=== PATIENT | male | born 1965 | race Caucasian/White ===

== ENCOUNTER 2018-06-29 08:19 | Emergency (ER) | payer MEDICARE ==
[2018-06-29 08:25] VITALS: BP 173/110; PULSE 104; RESP 18; TEMP 98.5
--- NOTE | 2018-06-29 08:37 | ED ---
URI HPI - General Chief Complaint: Upper Respiratory Infection Stated Complaint: sore throat Time Seen by Provider: 06/29/18 08:27 Source: patient, RN notes reviewed Mode of arrival: ambulatory Limitations: no limitations - History of Present Illness Initial Comments: 53-year-old male presents emergency Department chief complaint sore throat, hoarse voice for 1 week. Patient states that his been using cough drops with no relief. Patient denies any known fever or chills. Denies any chest pain or shortness breath. He does have underlying COPD. Patient denies any nausea vomiting diarrhea constipation. He states he has mild nasal congestion but primarily swelling of his uvula. Patient denies any known drug ALLERGIES or food ALLERGIES. - Related Data Previous Rx's Medication Instructions Recorded Amoxicillin/Potassium Clav 1 tab PO Q12HR #20 tab 06/29/18 [Augmentin 875-125 Tablet] predniSONE 50 mg PO DAILY #5 tab 06/29/18 Allergies Allergy/AdvReac Type Severity Reaction Status Date / Time No Known Allergies Allergy Verified 06/29/18 08:25 Review of Systems ROS Statement: Those systems with pertinent positive or pertinent negative responses have been documented in the HPI. ROS Other: All systems not noted in ROS Statement are negative. Past Medical History Past Medical History: COPD, Hypertension History of Any Multi-Drug Resistant Organisms: None Reported Past Psychological History: Bipolar, Schizoaffective Disorder, Schizophrenia Smoking Status: Current every day smoker Past Alcohol Use History: None Reported Past Drug Use History: None Reported General Exam Limitations: no limitations General appearance: alert, in no apparent distress Head exam: Present: atraumatic, normocephalic, normal inspection Eye exam: Present: normal appearance, PERRL, EOMI. Absent: scleral icterus, conjunctival injection, periorbital swelling ENT exam: Present: mucous membranes moist, TM's normal bilaterally, normal external ear exam. Absent: normal exam, normal oropharynx (Erythematous posterior pharynx, erythema and swelling of the uvula noted swallowing secretions well) Neck exam: Present: normal inspection, full ROM. Absent: tenderness, meningismus, lymphadenopathy Respiratory exam: Present: wheezes (Very minimal). Absent: normal lung sounds bilaterally, respiratory distress, rales, rhonchi, stridor Cardiovascular Exam: Present: regular rate, normal rhythm, normal heart sounds. Absent: systolic murmur, diastolic murmur, rubs, gallop, clicks Course Vital Signs 06/29/18 08:22 Temperature 98.5 F Pulse Rate 104 H Respiratory 18 Rate Blood Pressure 173/110 O2 Sat by Pulse 99 Oximetry Medical Decision Making - Medical Decision Making 53-year-old male presented for sore throat. Patient started to have uvulitis. Patient's symptoms have been present for 1 week. Patient we treated for bacterial infection with Augmentin, prednisone for the swelling. I did discuss because of the smoking and hoarse voice that he does not have any improvement after treatment that he needs to follow up with ENT for further evaluation concerning for cancer. Patient does understand and will follow-up. Return parameters were discussed. Disposition Clinical Impression: Uvulitis, Acute pharyngitis, Laryngitis Disposition: HOME SELF-CARE Condition: Stable Instructions (If sedation given, give patient instructions): Uvulitis (ED) Additional Instructions: Please return to the Emergency Department if symptoms worsen or any other concerns. Prescriptions: Amoxicillin/Potassium Clav [Augmentin 875-125 Tablet] 1 tab PO Q12HR #20 tab predniSONE 50 mg PO DAILY #5 tab Is patient prescribed a controlled substance at d/c from ED?: No Referrals: Odilon Acosta DO [Primary Care Provider] - 1-2 days Time of Disposition: 08:36
== END 2018-06-29 08:49 | disposition home or self-care (01) ==
LOC: EC 08:19
DX: K12.2 Cellulitis and abscess of mouth (principal); J04.0 Acute laryngitis; J02.9 Acute pharyngitis, unspecified; J44.9 Chronic obstructive pulmonary disease, unspecified; F17.200 Nicotine dependence, unspecified, uncomplicated
CPT/HCPCS: 99283

== ENCOUNTER 2018-07-13 07:40 | Emergency (ER) | payer MEDICARE ==
--- NOTE | 2018-07-13 08:26 | ED ---
General Adult HPI - General Chief complaint: ENT Stated complaint: SORETHROAT, COUGH, VOICE HORSENESS Time Seen by Provider: 07/13/18 08:07 Source: patient, RN notes reviewed Mode of arrival: ambulatory Limitations: no limitations - History of Present Illness Initial comments: 53-year-old male presents to the emergency department for a chief complaint of voice hoarseness 3 weeks. Patient states this started as a sore throat 3 weeks ago with hoarseness of voice. Patient states he also had a mild cough that seems to be improving. He states his cough is only in the morning now lasting for about 2 hours. Patient states he is generally feeling better although the hoarseness in his voice is continuing to worsen. Patient states he was seen here in the emergency department 12 days ago and treated with steroids and antibiotics. Patient could not take his steroids due to pruritus. However, as patient has an extensive smoking history there was concern for possible mass if symptoms did not resolve so patient presented to the emergency department. Patient did not follow-up with ENT. Patient has no other complaints at this time including shortness of breath, chest pain, abdominal pain, nausea or vomiting, headache, or visual changes. - Related Data Home Medications Medication Instructions Recorded Confirmed Ascorbic Acid [Vitamin C] 500 mg PO DAILY 06/29/18 07/13/18 Lisinopril 20 mg PO DAILY 06/29/18 07/13/18 Multivit-Min/FA/Lycopen/Lutein 1 tab PO DAILY 06/29/18 07/13/18 [Centrum Silver Men Tablet] PARoxetine [Paxil] 10 mg PO DAILY 06/29/18 07/13/18 Vitamin B Complex 1 cap PO DAILY 06/29/18 07/13/18 amLODIPine [Norvasc] 5 mg PO DAILY 06/29/18 07/13/18 fluPHENAZine [Prolixin 5MG] 5 mg PO DAILY 06/29/18 07/13/18 Allergies Allergy/AdvReac Type Severity Reaction Status Date / Time No Known Allergies Allergy Verified 07/13/18 08:30 Review of Systems ROS Statement: Those systems with pertinent positive or pertinent negative responses have been documented in the HPI. ROS Other: All systems not noted in ROS Statement are negative. Past Medical History Past Medical History: COPD, Hypertension History of Any Multi-Drug Resistant Organisms: None Reported Past Surgical History: No Surgical Hx Reported Past Psychological History: Bipolar, Schizoaffective Disorder, Schizophrenia Smoking Status: Current every day smoker Past Alcohol Use History: None Reported Past Drug Use History: None Reported General Exam Limitations: no limitations General appearance: alert, in no apparent distress Head exam: Present: atraumatic, normocephalic, normal inspection Eye exam: Present: normal appearance, PERRL, EOMI. Absent: scleral icterus, conjunctival injection, periorbital swelling ENT exam: Present: normal exam, mucous membranes moist, TM's normal bilaterally , normal external ear exam. Absent: normal oropharynx (uvula mildly enlarged, but down midline) Neck exam: Present: normal inspection, full ROM. Absent: tenderness, meningismus, lymphadenopathy, other (no masses noted) Respiratory exam: Present: normal lung sounds bilaterally. Absent: respiratory distress, wheezes, rales, rhonchi, stridor Cardiovascular Exam: Present: regular rate, normal rhythm, normal heart sounds. Absent: systolic murmur, diastolic murmur, rubs, gallop, clicks Neurological exam: Present: alert, oriented X3, CN II-XII intact Psychiatric exam: Present: normal affect, normal mood Course Vital Signs 07/13/18 07:46 Temperature 98.6 F Pulse Rate 89 Respiratory 18 Rate Blood Pressure 163/107 O2 Sat by Pulse 98 Oximetry Medical Decision Making - Medical Decision Making 53-year-old male presents to the emergency department for a chief complaint of voice hoarseness 3 weeks patient also has a mild sore throat with mild cough. History of COPD. Patient states cough is consistent with baseline. No fevers or chills at home. Patient does have a smoking history. Patient was treated with Augmentin and steroids but was unable to take the steroids. As the symptoms have been going on for 3 weeks and patient did not have relief from treatment patient will be scanned due to history of extensive smoking. CT of the neck with contrast shows no obvious mass or adenopathy. Chest x-ray shows no acute cardiopulmonary process. Group A strep is negative. At this time patient likely has a viral infection. However I did discuss following up with ENT in the next 1-2 days for possible additional testing. Patient will return here if he has any worsening symptoms. He agrees with this. - Lab Data Lab Results 07/13/18 Range/Units 08:32 Group A Strep Rapid Negative (Negative) Disposition Clinical Impression: Sore throat, Hoarseness of voice Disposition: HOME SELF-CARE Condition: Good Instructions (If sedation given, give patient instructions): Pharyngitis (ED) Additional Instructions: Please follow up with ENT in 1-2 days. Please return to the Emergency Department if you have any worsening symptoms Is patient prescribed a controlled substance at d/c from ED?: No Referrals: Odilon Acosta DO [Primary Care Provider] - 1-2 days Edy Cole MD [STAFF PHYSICIAN] - 1-2 days Time of Disposition: 10:03
--- NOTE | 2018-07-13 08:51 | XR ---
EXAMINATION TYPE: XR chest 2V DATE OF EXAM: 07/13/2018 COMPARISON: NONE HISTORY: Cough and congestion. History of COPD. TECHNIQUE: Frontal and lateral views of the chest are obtained. FINDINGS: There is no focal air space opacity, pleural effusion, or pneumothorax seen. The cardiac silhouette size is within normal limits. The osseous structures are intact. Minimal degenerative ch anges of the thoracic spine are noted. IMPRESSION: No acute cardiopulmonary process.
--- NOTE | 2018-07-13 09:30 | CT ---
EXAMINATION TYPE: CT soft tissue neck w con DATE OF EXAM: 07/13/2018 HISTORY: Sore throat, hoarseness, and cough for over one month COMPARISON: NONE CT DLP: 230.6 mGycm. Automated Exposure Control for Dose Reduction was Utilized. TECHNIQUE: CT scan of the neck is performed with IV Contrast, patient injected with 100 mL of Isovue 300, axial images are obtained, coronal and sagittal reformatted images are reviewed. FINDINGS: Airway: Nasopharyngeal airway is patent into hypopharyngeal airway. Region of epiglottis and vallecul a appears within normal limits. Thyroid gland is normal in size. Mild emphysematous change lung apice s is present. Parotid/submandibular glands: No gross abnormality seen. Carotid/Vascular Structures: No significant significant plaque or stenosis or carotid bulb level. The re is dominant left vertebral artery with suspected hypoplastic distal right vertebral artery. Osseous Structures: There is mild multilevel disc space narrowing with mild to moderate multilevel an terior spurring. Posterior spur disc complexes effacing anterior thecal sac at C3-C4, C4-C5, and C6-C 7 levels. Other: Nasal septum is slightly deviated to left of midline. Parapharyngeal fat spaces are maintained bilaterally. There are scattered subcentimeter lymph nodes throughout the neck bilaterally. There is no definitive greater than 1 cm neck adenopathy. IMPRESSION: No obvious mass or adenopathy.
[2018-07-13 10:25] VITALS: BP 134/86; PULSE 73; RESP 16; TEMP 97.6
== END 2018-07-13 10:17 | disposition home or self-care (01) ==
LOC: EC 07:40
DX: J02.9 Acute pharyngitis, unspecified (principal); I10 Essential (primary) hypertension; F17.200 Nicotine dependence, unspecified, uncomplicated; Z79.899 Other long term (current) drug therapy
CPT/HCPCS: 87081; 87430; 71046; 70491; 99284; Q9967

== ENCOUNTER 2018-09-13 10:41 | Day surgery (SDC) | payer MEDICARE ==
[2018-09-11 11:24] VITALS: BMI 23.5
[~2018-09-13 10:41] MED LIST: LACTATED RINGERS 1,000 ML IV SCH; LIDOCAINE 1% 20 ML VIAL (10MG/ML) FOR IV START INTRADERMA PRN; MIDAZOLAM (PF) 2 MG/2 ML VIAL IV PRN
[2018-09-13 11:14] VITALS: TEMP 97.8
[2018-09-13] MEDS ORDERED: PROPOFOL 10 MG/ML 20 ML VIAL IV ONE (12:21)
[2018-09-13] MEDS ORDERED: LIDOCAINE 1% INJ 10MG/ML (20 ML MDV) ONE (12:21)
[2018-09-13 13:00] VITALS: PULSE 78; RESP 16
--- NOTE | 2018-09-13 13:01 | P.PCN ---
Date of Procedure: 09/13/18 Procedure(s) Performed: Procedure: Colonoscopy and biopsy. Preoperative diagnosis: Diarrhea. Postoperative diagnosis: 1. Nonspecific sigmoid changes, could represent resolving infectious or self-limited colitis. 2. Diminutive rectal polyp, probably representing hyperplastic polyp, biopsied. 3. Otherwise, exam of the colon within normal limits. 4. A blind biopsy was obtained from the terminal ileum and biopsies were obtained from the right colon as well. Preparation: HalfLytely prep. Sedation: Was provided by anesthesia. Brief clinical history: The patient is a 53-year-old male who is scheduled for this evaluation because of diarrhea of 2 months duration. The patient indicated that normally he has multiple loose and diarrheic bowel movements every morning, then he would be good for the rest of the day, however, for the last 2 months, he continues to have bowel movements all day long. No bleeding or other alarm symptoms. No prior colonoscopy. There is family history of colon cancer in his paternal uncle. Procedure: With the patient on his left lateral decubitus position and after informed consent and adequate sedation, the perianal area was inspected and it did not show any fissures or fistulas. There were no masses felt on digital rectal examination. The Olympus CFH 190L video colonoscope was then inserted in the rectum in the usual fashion and advanced to the cecum. I was not able to advance the endoscope through the ileocecal valve into the terminal ileum, so I obtained a blind biopsy from the terminal ileum. There was some nonspecific mucosal changes in the sigmoid probably representing resolving self-limited or infectious colitis, otherwise, exam to the cecum showed healthy mucosa. There was a diminutive polyp in the rectum which I biopsied. I also obtained biopsies from the right colon to rule out microscopic colitis. The patient tolerated the procedure well. Plan: The patient was reassured. Will await biopsy results. He will follow up with you as planned and I will be happy to see in the office if his symptoms persist. I would consider repeat colonoscopy in around 5 years for screening for colon cancer.
[2018-09-13 13:11] VITALS: BP 147/93
== END 2018-09-13 13:28 | disposition home or self-care (01) ==
LOC: ORWHC2ENDO 10:41
DX: K50.10 Crohn's disease of large intestine without complications (principal); K62.1 Rectal polyp; Z80.0 Family history of malignant neoplasm of digestive organs; J44.9 Chronic obstructive pulmonary disease, unspecified; F31.9 Bipolar disorder, unspecified; I10 Essential (primary) hypertension; F17.210 Nicotine dependence, cigarettes, uncomplicated; Z79.899 Other long term (current) drug therapy
CPT/HCPCS: 88305; 45380; J2001; J2704

== ENCOUNTER 2019-12-21 03:25 | Inpatient (IN) | payer MEDICARE ==
[2019-12-21] MEDS ORDERED: lisinopriL 20 MG TAB PO STA (04:02)
[2019-12-21] MEDS ORDERED: amLODIPine 5 MG TAB PO STA (04:03)
[2019-12-21] MEDS ORDERED: PARoxetine 10 MG TAB PO STA (04:03)
[2019-12-21 05:27] LABS: Amphetamine Screen,Urine Not Detected (NotDetected); Barbiturate Screen,Urine Not Detected (NotDetected); Benzodiazepines Screen,Urine Not Detected (NotDetected); Cocaine Screen,Urine Not Detected (NotDetected); Methadone Screen, Urine Not Detected (NotDetected); Opiate Screen,Urine Not Detected (NotDetected); Oxycodone Screen, Urine Not Detected (NotDetected); Phencyclidine Screen,Urine Not Detected (NotDetected); Tricyclic Antidepressant,Urine Not Detected (NotDetected); Urn Cannabinoid Scrn Not Detected (NotDetected)
[2019-12-21] MEDS ORDERED: ZIPRASIDONE 20 MG VIAL IM PRN (06:56)
[2019-12-21] MEDS ORDERED: MAGNESIUM HYDROXIDE 2,400 MG/10 ML CUP PO PRN (06:56)
[2019-12-21] MEDS ORDERED: ACETAMINOPHEN TAB 325 MG TAB PO PRN (06:56)
[2019-12-21] MEDS ORDERED: LORazepam 2 MG/ML INJ IM PRN (06:56)
--- NOTE | 2019-12-21 07:28 | ED ---
General Adult HPI - General Chief complaint: Recheck/Abnormal Lab/Rx Stated complaint: psych eval Time Seen by Provider: 12/21/19 03:34 Source: patient, EMS Mode of arrival: EMS Limitations: no limitations - History of Present Illness Initial comments: This patient is a 54-year-old man who presents to be evaluated for constellation of symptoms that have started since he ran out of his Prolixin. Patient states that he has been having some racing thoughts. He is concerned that there are people who are conspiring against him. He states he also went and drank a considerable amount of alcohol in the past 2 days which is something he does not do if he is taking his medication. Patient also has been driving dangerously. He states that he had change in his insurance and has not been able to afford any of his medications for between a week and 2 weeks now. -: days(s) Severity scale (1-10): 0 Improves with: none Worsens with: none Associated Symptoms: denies other symptoms - Related Data Home Medications Medication Instructions Recorded Confirmed Ascorbic Acid [Vitamin C] 500 mg PO 06/29/18 09/11/18 Lisinopril 20 mg PO 06/29/18 09/11/18 Multivit-Min/FA/Lycopen/Lutein 1 tab PO 06/29/18 09/11/18 [Centrum Silver Men Tablet] PARoxetine [Paxil] 10 mg PO HS 06/29/18 09/11/18 Vitamin B Complex 1 cap PO 06/29/18 09/11/18 amLODIPine [Norvasc] 5 mg PO 06/29/18 09/11/18 fluPHENAZine [Prolixin 5MG] 5 mg PO 06/29/18 09/11/18 Allergies Allergy/AdvReac Type Severity Reaction Status Date / Time No Known Allergies Allergy Verified 12/21/19 03:33 Review of Systems ROS Statement: Those systems with pertinent positive or pertinent negative responses have been documented in the HPI. ROS Other: All systems not noted in ROS Statement are negative. Constitutional: Denies: fever, chills, weakness Eyes: Denies: vision change Respiratory: Denies: cough, dyspnea Cardiovascular: Denies: chest pain, palpitations Gastrointestinal: Denies: abdominal pain, vomiting, diarrhea Genitourinary: Denies: dysuria Skin: Denies: rash Neurological: Denies: headache, weakness, numbness Psychiatric: Reports: as per HPI, anxiety, other (Racing thoughts and delusional thought content.). Denies: auditory hallucinations, visual hallucinations, homicidal thoughts, suicidal thoughts Past Medical History Past Medical History: COPD, Hypertension History of Any Multi-Drug Resistant Organisms: None Reported Past Surgical History: No Surgical Hx Reported Additional Past Surgical History / Comment(s): ORAL SX Past Anesthesia/Blood Transfusion Reactions: No Reported Reaction Past Psychological History: Bipolar, Schizoaffective Disorder, Schizophrenia Past Alcohol Use History: None Reported Past Drug Use History: None Reported - Past Family History Mother Family Medical History: No Reported History General Exam Limitations: no limitations General appearance: alert, in no apparent distress, anxious Head exam: Present: atraumatic, normocephalic Eye exam: Present: normal appearance. Absent: scleral icterus, conjunctival injection ENT exam: Present: normal oropharynx Neck exam: Present: normal inspection, full ROM Respiratory exam: Present: normal lung sounds bilaterally. Absent: respiratory distress, wheezes, rales, rhonchi, stridor Cardiovascular Exam: Present: regular rate, normal rhythm, normal heart sounds. Absent: systolic murmur, diastolic murmur, rubs, gallop GI/Abdominal exam: Present: soft. Absent: distended, tenderness, guarding, rebound, rigid, mass Extremities exam: Present: normal inspection, normal capillary refill. Absent: pedal edema, calf tenderness Back exam: Present: normal inspection. Absent: CVA tenderness (R), CVA tenderness (L) Neurological exam: Present: alert Psychiatric exam: Present: anxious, manic. Absent: normal affect, normal mood, depressed, agitated, flat affect, homicidal ideation, suicidal ideation Skin exam: Present: warm, dry, intact, normal color. Absent: rash Course Vital Signs 12/21/19 12/21/19 12/21/19 03:27 05:35 06:39 Temperature 98.7 F 97.5 F L 98.8 F Pulse Rate 90 88 98 Pulse Rate [ Right] Respiratory 16 18 18 Rate Blood Pressure 145/100 139/80 135/87 Blood Pressure [Right Arm] O2 Sat by Pulse 100 99 100 Oximetry 12/21/19 07:16 Temperature 98.4 F Pulse Rate Pulse Rate [ 98 Right] Respiratory 18 Rate Blood Pressure Blood Pressure 153/94 [Right Arm] O2 Sat by Pulse 95 Oximetry Medical Decision Making - Lab Data Lab Results 12/21/19 Range/Units 05:03 Urine Opiates Screen Not Detected (NotDetected) Ur Oxycodone Screen Not Detected (NotDetected) Urine Methadone Screen Not Detected (NotDetected) Ur Propoxyphene Screen Not Detected (NotDetected) Ur Barbiturates Screen Not Detected (NotDetected) U Tricyclic Antidepress Not Detected (NotDetected) Ur Phencyclidine Scrn Not Detected (NotDetected) Ur Amphetamines Screen Not Detected (NotDetected) U Methamphetamines Scrn Not Detected (NotDetected) U Benzodiazepines Scrn Not Detected (NotDetected) Urine Cocaine Screen Not Detected (NotDetected) U Marijuana (THC) Screen Not Detected (NotDetected) Disposition Clinical Impression: Acute psychosis Disposition: ADMITTED IP TO THIS [facility] Condition: Fair Is patient prescribed a controlled substance at d/c from ED?: No Referrals: Odilon Acosta DO [Primary Care Provider] - 1 Week
[2019-12-21] MEDS: NICOTINE 14MG/24HR PATCH TRANSDERM SCH (09:34)
[2019-12-21] MEDS: LORazepam 1 MG TAB PO PRN ×2 (09:36→21:16)
--- NOTE | 2019-12-21 16:18 | P.HP ---
Psychiatric H&P - . H&P Date: 12/21/19 History & Physical: Allergies Allergy/AdvReac Type Severity Reaction Status Date / Time No Known Allergies Allergy Verified 12/21/19 03:33 Vital Signs Temp 98.4 F 12/21/19 07:16 Pulse 98 12/21/19 07:16 Resp 18 12/21/19 07:16 BP 153/94 12/21/19 07:16 Pulse Ox 95 12/21/19 07:16 Intake & Output 12/20/19 12/21/19 12/21/19 18:59 06:59 18:59 Weight 68.039 kg 65.68 kg Laboratory Last Values Urine Opiates Screen Not Detected (NotDetected) 12/21/19 05:03 Ur Oxycodone Screen Not Detected (NotDetected) 12/21/19 05:03 Urine Methadone Screen Not Detected (NotDetected) 12/21/19 05:03 Ur Propoxyphene Screen Not Detected (NotDetected) 12/21/19 05:03 Ur Barbiturates Screen Not Detected (NotDetected) 12/21/19 05:03 U Tricyclic Antidepress Not Detected (NotDetected) 12/21/19 05:03 Ur Phencyclidine Scrn Not Detected (NotDetected) 12/21/19 05:03 Ur Amphetamines Screen Not Detected (NotDetected) 12/21/19 05:03 U Methamphetamines Scrn Not Detected (NotDetected) 12/21/19 05:03 U Benzodiazepines Scrn Not Detected (NotDetected) 12/21/19 05:03 Urine Cocaine Screen Not Detected (NotDetected) 12/21/19 05:03 U Marijuana (THC) Screen Not Detected (NotDetected) 12/21/19 05:03 12/21/19 16:11 Identifying data: 54-year-old male patient HPI:Patient was admitted to the inpatient psychiatric unit on a voluntary basis relays he was off his medications and was feeling paranoid. Patient states he couldn't get his medications and was off of them for a 2 week.. He says he couldn't eat and he was walking the streets and says he was feeling paranoid and delusional. Says he came to the hospital on his own, he was shaking bad. He also states he was not sleeping good. He says when he is on his medications is fine. PAST PSYCHIATRIC HISTORY: Patient relays he has not been seeing a psychiatrist recently. He says his illness has been in remission for 20 years on the medications. He most recently has been on Prolixin 5 more grams at bedtime and Paxil on 10 mg at bedtime. He makes a reference initially that he like to get off Paxil but then he says when he misses that he'll notice that and on it's a good signal that he hasn't taken it sounds. He used to see Dr. Arias in the past. He makes reference to a diagnosis of paranoid schizophrenia. He hasn't heard voices in many years he states. He denies any history of suicide attempts. PMH: Hypertension, COPD ALLERGIES: No known ALLERGIES MEDICATIONS: Tylenol when necessary, Maalox when necessary, Norvasc, Catapres, Zestril, Ativan when necessary, milk of magnesia when necessary, Habitrol patch, Geodon when necessary CHEMICAL DEPENDENCY HISTORY: Patient relays a history of using marijuana, says lately he hasn't been able to afford it. He says he has a marijuana card. He does make a reference to some history of drinking 6-8 beers per day. FAMILY PSYCHIATRIC HISTORY: Not known at this time. FAMILY CHEMICAL DEPENDENCY HISTORY: Not known at this time. SOCIAL HISTORY: Makes reference to a history of disability. He lives on his own apartment. He does talk about his heladio. MENTAL STATUS EXAM: He is alert and cooperative with the interview. His speech is fluent, somewhat rapid and pressured at times. His speech does become louder at times. His mood is described as "back to self." He denies any thoughts of harm to self or others. His thought processes at times show some disorganization. He relates he hasn't heard voices for many years. He does describe recent feelings of paranoid thinking. Cognitively appears very grossly intact. I do not note any significant disorientation or memory disturbance. His insight is adequate, judgment shows evidence of recent impairment. STRENGTHS/WEAKNESSES: Strengthsseeking treatment; weaknessescoping skills INTELLECTUAL FUNCTIONING: Average IMPRESSIONS: Schizophrenia; rule out cannabis and alcohol use disorders PLAN: Patient is admitted to the inpatient psychiatric unit on a voluntary basis. He'll placed on SP 15 minute precautions. He'll participate group and activity therapies. Baseline laboratory workup will be done the patient and medical consultation will be ordered. We'll reinitiate medications that he has done well on which include Paxil 10 mg at bedtime and Prolixin 5 mg at bedtime. Continue to monitor for any mood or psychosis symptoms. We will look into any support systems. Estimated length of stay is 3-5 days. Prognosis is guarded.
--- NOTE | 2019-12-21 18:32 | P.MDCNMH ---
History of Present Illness H&P Date: 12/21/19 Chief Complaint: Medical management 54-year-old male with hypertension, COPD mild to moderate presents to the ED for increasing thoughts after running out of Prolixin. He is admitted to mental health unit for further management and observation. [facility] physicians has been consulted for medical management of this patient. Patient states that he was binge drinking over the past 3 days and he is unable to describe any other events during this time. Patient reports smoking 2-3 packs of cigarettes daily since great 8. Patient reports no history of alcohol abuse, states that he drinks very seldomly and socially. He denies any illicit drug use. Patient denies any headache, lower extremity edema, nausea or vomiting, fever or chills, chest pain, shortness of breath, palpitations, changes in urination or bowel habits. No changes in appetite or weight. He denies any dizziness, numbness/weakness/tingling of the extremities. Review of his vital signs show BP of 153/94. UDS was negative. Review of Systems Pertinent positives and negatives as discussed in HPI, a complete review of systems was performed and all other systems are negative. Past Medical History Past Medical History: COPD, Hypertension History of Any Multi-Drug Resistant Organisms: None Reported Past Surgical History: No Surgical Hx Reported Additional Past Surgical History / Comment(s): ORAL SX Past Anesthesia/Blood Transfusion Reactions: No Reported Reaction Past Psychological History: Bipolar, Schizoaffective Disorder, Schizophrenia Past Alcohol Use History: None Reported Past Drug Use History: None Reported - Past Family History Mother Family Medical History: No Reported History Medications and Allergies Home Medications Medication Instructions Recorded Confirmed Type Ascorbic Acid [Vitamin C] 500 mg PO 06/29/18 12/21/19 History Lisinopril 20 mg PO 06/29/18 12/21/19 History Multivit-Min/FA/Lycopen/Lutein 1 tab PO 06/29/18 12/21/19 History [Centrum Silver Men Tablet] PARoxetine [Paxil] 10 mg PO 06/29/18 12/21/19 History amLODIPine [Norvasc] 5 mg PO HS 06/29/18 12/21/19 History fluPHENAZine [Prolixin 5MG] 5 mg PO HS 06/29/18 12/21/19 History cloNIDine HCL [Catapres] 0.1 mg PO 12/21/19 12/21/19 History Allergies Allergy/AdvReac Type Severity Reaction Status Date / Time No Known Allergies Allergy Verified 12/21/19 03:33 Physical Exam Vitals: Vital Signs Temp Pulse Pulse Resp BP BP Pulse Ox 12/21/19 07:16 98.4 F 98 18 153/94 95 12/21/19 06:39 98.8 F 98 18 135/87 100 12/21/19 05:35 97.5 F L 88 18 139/80 99 12/21/19 03:27 98.7 F 90 16 145/100 100 Intake and Output 12/21/19 12/21/19 12/21/19 06:59 14:59 22:59 Other: Weight 68.039 kg 65.68 kg General: [non toxic], [no distress], [appears at stated age] Derm: [warm], [dry] Head: [atraumatic], [normocephalic], [symmetric] Eyes: [EOMI], [no lid lag], [anicteric sclera] Mouth: [no lip lesion], [mucus membranes moist] Cardiovascular: [S1S2 reg], [tachycardic], [positive DP pulse bilateral], Lungs: [Scattered wheezing bilateral], [no rhonchi, no rales] , [no accessory muscle use] Abdominal: [soft], [ nontender to palpation], [no guarding], [no appreciable organomegaly] Ext: [no gross muscle atrophy], [no edema], [no contractures] Neuro: [ CN II-XI grossly intact], [no focal neuro deficits] Psych: [Alert], [oriented], [appropriate affect] , pressured speech Cranial Nerve Examination - Cranial Nerves Cranial Nerve II- Optic: Intact Cranial Nerve III- Oculomotor: Intact Cranial Nerve IV- Trochlear: Intact Cranial Nerve V- Trigeminal: Intact Cranial Nerve - Abducens: Intact Cranial Nerve VII- Facial: Intact Cranial Nerve VIII- Auditory: Intact Cranial Nerve IX- Glossopharyngeal: Intact Cranial Nerve X- Vagus: Intact Cranial Nerve XI- Accessory: Intact Cranial Nerve XII- Hypoglossal: Intact Assessment and Plan Assessment: Hypertension Mild to moderate COPD Smoker Patient's blood pressure is elevated at 153/94. He has not been taking his medications as prescribed. He will be restarted on amlodipine, lisinopril and clonidine. His vitals to be monitored and medications adjusted if necessary. Patient's respiratory status is stable. He denies any shortness of breath. He is saturating high 90s on room air. We will add albuterol inhaler as needed for shortness of breath and wheezing. He will be given a nicotine patch for history of smoking. Thank you for this consult. Please call with any additional questions or concerns.
[2019-12-21] MEDS: amLODIPine 5 MG TAB PO SCH (21:14)
[2019-12-21] MEDS: cloNIDine HCL 0.1 MG TAB PO SCH (21:15)
[2019-12-21] MEDS: lisinopriL 20 MG TAB PO SCH (21:15)
[2019-12-21] MEDS: PARoxetine 10 MG TAB PO SCH (21:15)
[2019-12-21] MEDS: MAG HYDROX/AL HYDROX/SIMETH 30 ML CUP PO PRN (21:16)
[2019-12-22 07:26] LABS: Basophils # (A) 0.1 k/uL (0-0.2); Basophils % (A) 1 %; Eosinophils # (A) 0.5 k/uL (0-0.7); Eosinophils % (A) 7 %; HCT 46.5 % (39.0-53.0); Lymphocytes # (A) 1.7 k/uL (1.0-4.8); Lymphocytes % (A) 24 %; MCH 31.3 pg (25.0-35.0); MCHC 32.4 g/dL (31.0-37.0); MCV 96.7 fL (80.0-100.0); Mean Platelet Volume 6.9; Monocytes # (A) 0.7 k/uL (0-1.0); Monocytes % (A) 9 %; Neutrophils # (A) 4.1 k/uL (1.3-7.7); Neutrophils % (A) 57 %; Platelet Count 304 k/uL (150-450); RBC 4.81 m/uL (4.30-5.90); RDW 12.3 % (11.5-15.5); WBC 7.3 k/uL (3.8-10.6)
[2019-12-22 07:33] LABS: ALT 19 U/L (4-49); AST 28 U/L (17-59); African American GFR (CKD) >90 (>60 ml/min/1.73 sqM); Albumin 4.3 g/dL (3.5-5.0); Alkaline Phosphatase 56 U/L (38-126); Anion Gap 6 mmol/L; Bilirubin, Delta 0.1 mg/dL (0.0-0.2); Blood Urea Nitrogen 14 mg/dL (9-20); Calcium 8.8 mg/dL (8.4-10.2); Carbon Dioxide 27 mmol/L (22-30); Chloride 98 mmol/L (98-107); Cholesterol 111 mg/dL (<200); Glucose 94 mg/dL (74-99); HDL Cholesterol 61 mg/dL (40-60); LDL Cholesterol,Calculated 32 mg/dL (0-99); Non-African American GFR(CKD) >90 (>60 ml/min/1.73 sqM); Potassium 4.5 mmol/L (3.5-5.1); Sodium 131 mmol/L (137-145); Total Bilirubin 1.1 mg/dL (0.2-1.3); Total Protein 6.8 g/dL (6.3-8.2); Triglycerides 91 mg/dL (<150)
[2019-12-22] MEDS: NICOTINE 14MG/24HR PATCH TRANSDERM SCH (09:03)
--- NOTE | 2019-12-22 17:38 | P.PN ---
Progress Note - Text Progress Note Date: 12/22/19 Interval history: Patient is [place] [facility] [place]. He is back on his psychotropic medication and seems to be tolerating them fine. He does seem to be feeling better today. He does talk about hearing that he was going to have a visitor tonight. He talks about financial stressors. Mental status exam: He is alert and cooperative with the interview. His speech is fluent, not rapid or pressured. His thought processes overall are organized. He does describe some paranoid type thinking about the rioters. He has not verbalize any thoughts of harm to self or others. He does not display any significant agitation. Plan: Patient will be maintained on current psychotropic medication regimen. Continue to monitor for any medication side effects and monitor his ongoing response to treatment.
[2019-12-22] MEDS: LORazepam 1 MG TAB PO PRN (20:11)
[2019-12-22] MEDS: PARoxetine 10 MG TAB PO SCH (20:11)
[2019-12-22] MEDS: amLODIPine 5 MG TAB PO SCH (20:12)
[2019-12-22] MEDS: lisinopriL 20 MG TAB PO SCH (20:12)
[2019-12-22] MEDS: cloNIDine HCL 0.1 MG TAB PO SCH (20:12)
[2019-12-23] MEDS: NICOTINE 14MG/24HR PATCH TRANSDERM SCH (09:02)
[2019-12-23] MEDS: haloperidoL 5 MG TAB PO SCH (11:14)
[2019-12-23 11:47] LABS: Hemoglobin A1C 5.6 % (4.0-6.0)
--- NOTE | 2019-12-23 13:46 | P.PN ---
Progress Note - Text Progress Note Date: 12/23/19 Clinical Problems: Schizophrenia, cannabis use disorder, alcohol use disorder Interim history: I reviewed the medical record, interviewed the patient and discuss his treatment and treatment plan during team meeting. He has a history of schizophrenia diagnosed when he was young adult. He reported that he "did well" when he was taking Prolixin 5 mg daily. He talked about a katz increase in Prolixin to the point where he could not manage to buy the medication and it is not covered by his insurance. Since he stopped Prolixin is experiencing increased insomnia, restlessness and paranoia. He talked about increasing use of alcohol but alleged she only drank "about 6 beers a day." He is not engaged in outpatient mental health services. A primary has been prescribing his medications. We discussed treatment options and review the cost of antipsychotics. He agreed to trial of Haldol 5 mg daily. Mental status exam: He presented as a thin casually groomed 54-year-old male who made eye contact and attended the interview. He had intermittent involuntary movements of a trunk and arms and feet. His speech was spontaneous with increased rate and volume. His affect was stable and appropriate. He denied suicidal ideation and wishes. He denied homicidal ideation. He denied feeling hopeless, helpless or worthless. He ruminated about his financial problems, access to antipsychotic medications and difficulty with various landlords. Express paranoid ideation but no clear ideas reference or delusions. His thinking was concrete and associations at times were not organized and goal directed. He denied hallucinations did not appear to be responding to internal stimuli. Assessment: He is chronically mentally ill and presents with increasing paranoia and impairment in sleep since his been unable to purchase Prolixin. Plan: Continue inpatient treatment. Safety precautions. Discontinue Prolixin and begin Haldol 5 mg by mouth daily and titrated according to clinical response and tolerance. market garden worker to coordinate discharge and aftercare including referral to community mental health. Encourage participation in therapeutic groups and activities. Evaluate clinical status response to treatment daily basis.
[2019-12-23] MEDS: lisinopriL 20 MG TAB PO SCH (20:40)
[2019-12-23] MEDS: amLODIPine 5 MG TAB PO SCH (20:40)
[2019-12-23] MEDS: cloNIDine HCL 0.1 MG TAB PO SCH (20:40)
[2019-12-23] MEDS: PARoxetine 10 MG TAB PO SCH (20:40)
[2019-12-23] MEDS: LORazepam 1 MG TAB PO PRN (20:41)
[2019-12-23] MEDS: MAG HYDROX/AL HYDROX/SIMETH 30 ML CUP PO PRN (22:11)
[2019-12-24 06:44] VITALS: BP 132/72; PULSE 69; RESP 17
[2019-12-24] MEDS: haloperidoL 5 MG TAB PO SCH (08:27)
[2019-12-24] MEDS: NICOTINE 14MG/24HR PATCH TRANSDERM SCH (08:27)
[2019-12-24] MEDS: MAG HYDROX/AL HYDROX/SIMETH 30 ML CUP PO PRN (09:22)
[2019-12-24 13:24] VITALS: TEMP 94.8
--- NOTE | 2019-12-24 14:05 | P.DS ---
Providers Date of admission: 12/21/19 06:41 Attending physician: Pierce Hernandez MD Consults: 12/21/19 06:56 Consult Physician Routine Consulting Provider: Lex Physician Consult Reason/Comments: Medical H and P Do you want consulting provider notified?: Yes Primary care physician: Odilon Acosta - Discharge Diagnosis(es) (1) Schizophrenia Status: Chronic Priority: High (2) Financial problems Status: Chronic Priority: Medium Hospital Course: HISTORY: He is a 54-year-old single male who has a history of schizophrenia with an onset in early adulthood. He has had multiple psychiatric hospitalizations but none over the last 20 years. He presented to the psychiatric unit voluntary with complaints of feeling increasingly paranoid to the point that he was not eating or leaving his house. He stated that he stopped Prolixin 5 mg daily because he could no longer afford the medication. His insurance company classified Prolixin as a Tier 4 medication and he could not afford the $80 the medication cost monthly. We verified that a 30 day supply of Prolixin 5 mg a day cost between 80 and $100 per month. His UDS was negative for drugs of abuse. HOSPITAL COURSE: We admitted him voluntarily to the psychiatric unit under the care of this comic writer. We provided a comprehensive biopsychosocial assessment. The quality engineer medical device completed initial physical exam and medical history and diagnosed COPD, hypertension and tobacco use. The surgical consultant recommended to continue Catapres 0.1 mg at, lisinopril 20 mg at bedtime and Norvasc 5 mg at bedtime. We prescribed Habitrol 14 mg for smoking cessation. After reviewing his treatment history she agreed to discontinue Prolixin and begin Haldol 5 mg daily. After 2 doses reported a decrease in paranoia. He requested to be discharge because he was sure he can afford the cost of Haldol (it is a tier 2 medication). He posed no management problem and had no episodes of behavioral dyscontrol. MENTAL STATUS AT DISCHARGE: He presented as a casually groomed alcohol thing 51-year-old male who was pleasant on approach. He made eye contact and attended to the interview. He had no distinguishing features or prominent physical abnormalities. He had a blunted but bright facial expression. He was alert and oriented to person, place and time. He showed no abnormality of psychomotor activity. He had a normal gait and station. His speech was spontaneous with normal rate, rhythm and volume. His affect was blunted but stable and appropriate. He denied suicidal ideation and wishes. He denied homicidal ideation. He denied feeling hopeless, helpless or worthless. He denied feeling paranoid and did not express paranoid ideation or delusions. His thinking was concrete but his associations record, logical and goal directed. He denied hallucinations and did not appear to be responding to internal stimuli. DISPOSITION: He was discharge to his prior address. He has an appointment at [facility] on 12/26/2019 at 10:30 AM. His discharge medications include Haldol 5 mg daily and Paxil 10 mg at bedtime. Patient Condition at Discharge: Stable Plan - Discharge Summary New Discharge Prescriptions: New Nicotine 14Mg/24Hr Patch [Habitrol] 1 patch TRANSDERM DAILY patch Haloperidol [Haldol] 5 mg PO DAILY #30 tab Continue Ascorbic Acid [Vitamin C] 500 mg PO HS Multivit-Min/FA/Lycopen/Lutein [Centrum Silver Men Tablet] 1 tab PO HS cloNIDine HCL [Catapres] 0.1 mg PO HS #30 tab Lisinopril 20 mg PO HS #30 tab amLODIPine [Norvasc] 5 mg PO HS #30 tab PARoxetine [Paxil] 10 mg PO HS #30 tab Discontinued fluPHENAZine [Prolixin 5MG] 5 mg PO HS Discharge Medication List Ascorbic Acid [Vitamin C] 500 mg PO HS 06/29/18 [History] Multivit-Min/FA/Lycopen/Lutein [Centrum Silver Men Tablet] 1 tab PO HS 06/29/18 [History] Haloperidol [Haldol] 5 mg PO DAILY #30 tab 12/24/19 [Rx] Lisinopril 20 mg PO HS #30 tab 12/24/19 [Rx] Nicotine 14Mg/24Hr Patch [Habitrol] 1 patch TRANSDERM DAILY patch 12/24/19 [Rx] PARoxetine [Paxil] 10 mg PO HS #30 tab 12/24/19 [Rx] amLODIPine [Norvasc] 5 mg PO HS #30 tab 12/24/19 [Rx] cloNIDine HCL [Catapres] 0.1 mg PO HS #30 tab 12/24/19 [Rx] Follow up Appointment(s)/Referral(s): [facility] [Outside] - 12/26/19 10:30 am (Appointment 12/26/19 at 10:30 am with Rosy via telephone.) Odilon Acosta DO [Primary Care Provider] - 1 Week Patient Instructions/Handouts: How to Stop Smoking (DC), Schizophrenia (DC), Abuse of Alcohol (DC), Cannabis Abuse (DC), Psychotic Disorder (DC) Activity/Diet/Wound Care/Special Instructions: Activity and diet as tolerated. Avoid the use of street drugs and alcohol. Take all medications as prescribed. When you are in need of refills on your medications please contact your medical provider and/or outpatient psychiatrist to have this done. Please go to scheduled outpatient appointment for aftercare treatment. If symptoms return or become worse, call the crisis line at and/or go to the nearest emergency room for evaluation Discharge Disposition: HOME SELF-CARE
== END 2019-12-24 12:42 | disposition home or self-care (01) | DRG 885 ==
LOC: EC 03:25 → 3MHU 06:41
PROVIDERS: ADMIT Psychiatry & Neurology Psychiatry; ATTEND Psychiatry & Neurology Psychiatry
DX: F20.0 Paranoid schizophrenia (principal); G47.00 Insomnia, unspecified; I10 Essential (primary) hypertension; J44.9 Chronic obstructive pulmonary disease, unspecified; F12.10 Cannabis abuse, uncomplicated; F10.10 Alcohol abuse, uncomplicated; Z59.9 Problem related to housing and economic circumstances, unspecified; Z79.899 Other long term (current) drug therapy; Z87.891 Personal history of nicotine dependence
CPT/HCPCS: 80053; 80061; 80306; 82075; 82248; 83036; 84443; 85025; 99285

== ENCOUNTER 2020-02-08 10:50 | Inpatient (IN) | payer MEDICARE, MEDICAID ==
[2020-02-08] MEDS ORDERED: LORazepam 1 MG TAB PO STA (11:13)
--- NOTE | 2020-02-08 11:14 | ED ---
General Adult HPI <Leroy Walker - Last Filed: 02/08/20 13:09> - General Source: patient, RN notes reviewed, old records reviewed Mode of arrival: ambulatory Limitations: no limitations <Thiago Nuñez - Last Filed: 02/08/20 13:31> - General Chief complaint: Psychiatric Symptoms Stated complaint: mental health Time Seen by Provider: 02/08/20 11:00 - History of Present Illness Initial comments: 54-year-old male patient presents to ED for evaluation of anxiety, suicidal ideations. Patient reports that for the last day or so he has been having some suicidal ideations. Denies any specific plan or actions to hurt himself. Denies any physical complaints. Systemic: Pt denies fatigue, fever/chills, rash. Pt denies weakness, night sweats, weight loss. Neuro: Pt denies headache, visual disturbances, syncope or pre-syncope. HEENT: Pt denies ocular discharge or irritation, otalgia, rhinorrhea, pharyngitis or notable lymphadenopathy. Cardiopulmonary: Pt denies chest pain, SOB, heart palpitations, dyspnea on exertion. Abdominal/GI: Pt denies abdominal pain, n/v/d. : Pt denies dysuria, burning w/ urination, frequency/urgency. Denies new onset urinary or bowel incontinence. MSK: Pt denies myalgia, loss of strength or function in extremities. Neuro: Pt denies new onset weakness, paresthesias. (Thiago Nuñez) - Related Data Home Medications Medication Instructions Recorded Confirmed Multivit-Min/FA/Lycopen/Lutein 1 tab PO DAILY 06/29/18 02/08/20 [Centrum Silver Men Tablet] PARoxetine [Paxil] 10 mg PO DAILY 02/08/20 02/08/20 amLODIPine [Norvasc] 5 mg PO DAILY 02/08/20 02/08/20 lisinopriL 20 mg PO DAILY 02/08/20 02/08/20 Previous Rx's Medication Instructions Recorded haloperidoL [Haldol] 5 mg PO DAILY #30 tab 12/24/19 Allergies Allergy/AdvReac Type Severity Reaction Status Date / Time No Known Allergies Allergy Verified 02/08/20 11:41 Review of Systems ROS Other: All systems not noted in ROS Statement are negative. <Leroy Walker - Last Filed: 02/08/20 13:09> ROS Other: All systems not noted in ROS Statement are negative. <Thiago Nuñez - Last Filed: 02/08/20 13:31> ROS Statement: Those systems with pertinent positive or pertinent negative responses have been documented in the HPI. Past Medical History Past Medical History: COPD, Hypertension History of Any Multi-Drug Resistant Organisms: None Reported Past Surgical History: No Surgical Hx Reported Additional Past Surgical History / Comment(s): ORAL SX Past Anesthesia/Blood Transfusion Reactions: No Reported Reaction Past Psychological History: Bipolar, Schizoaffective Disorder, Schizophrenia Smoking Status: Current every day smoker Past Alcohol Use History: Rare Past Drug Use History: Marijuana - Past Family History Mother Family Medical History: No Reported History <JoaquinThiago - Last Filed: 02/08/20 13:31> General Exam Limitations: no limitations <Thiago Nuñez Haroon - Last Filed: 02/08/20 13:31> - General Exam Comments Initial Comments: Constitutional: NAD, AOX3, Pt has pleasant affect. HEENT: NC/AT, trachea midline, neck supple, no lymphadenopathy. Mucous membranes moist. Eyes PERRLA, EOM intact. There is no scleral icterus. No pallor noted. Cardiopulmonary: RRR, no murmurs, rubs or gallops, no JVD noted. Lungs CTAB in anterior and posterior sanchez. No peripheral edema. Abdominal exam: Abdomen soft and non-distended. Abdomen non-tender to palpation in all 4 quadrants. Neuro: CN II-XII grossly intact. No nuchal rigidity. MSK: Full active ROM in upper and lower extremities. (Thiago Nuñez) Course <Leroy Walker - Last Filed: 02/08/20 13:09> Vital Signs 02/08/20 02/08/20 10:53 13:23 Temperature 98.2 F 98.4 F Pulse Rate 118 H 98 Respiratory 18 18 Rate Blood Pressure 144/88 138/88 O2 Sat by Pulse 98 98 Oximetry - Reevaluation(s) Reevaluation #1: 02/08/20 13:10 PA supervision: I personally evaluate this case patient does present with complaints of suicidal thoughts. He was evaluated in the EPS service. He is found be a risk to himself. Patient is a voluntary admission at this time. Patient will be admitted. (Leroy Walker) Medical Decision Making <Thiago Nuñez - Last Filed: 02/08/20 13:31> - Medical Decision Making 54-year-old male patient presents to ED for psychiatric evaluation. Patient reports he has been very anxious and having some suicidal thoughts. Patient vital signs are stable, afebrile. Physical exam did not display acute pathology. Patient out of the emergency psychiatric services and will be admitted for further evaluation. Case discussed with Dr. Walker. (Thiago Nuñez) - Lab Data Lab Results 02/08/20 Range/Units 11:17 Urine Opiates Screen Not Detected (NotDetected) Ur Oxycodone Screen Not Detected (NotDetected) Urine Methadone Screen Not Detected (NotDetected) Ur Propoxyphene Screen Not Detected (NotDetected) Ur Barbiturates Screen Not Detected (NotDetected) U Tricyclic Antidepress Not Detected (NotDetected) Ur Phencyclidine Scrn Not Detected (NotDetected) Ur Amphetamines Screen Not Detected (NotDetected) U Methamphetamines Scrn Not Detected (NotDetected) U Benzodiazepines Scrn Not Detected (NotDetected) Urine Cocaine Screen Not Detected (NotDetected) U Marijuana (THC) Screen Detected H (NotDetected) Disposition <Leroy Walker - Last Filed: 02/08/20 13:09> <Thiago Nuñez - Last Filed: 02/08/20 13:31> Clinical Impression: Depression, Suicidal ideation Disposition: TRANSFER TO PSYCH HOSP/UNIT Condition: Stable
[2020-02-08 11:52] LABS: Amphetamine Screen,Urine Not Detected (NotDetected); Barbiturate Screen,Urine Not Detected (NotDetected); Benzodiazepines Screen,Urine Not Detected (NotDetected); Cocaine Screen,Urine Not Detected (NotDetected); Methadone Screen, Urine Not Detected (NotDetected); Opiate Screen,Urine Not Detected (NotDetected); Oxycodone Screen, Urine Not Detected (NotDetected); Phencyclidine Screen,Urine Not Detected (NotDetected); Tricyclic Antidepressant,Urine Not Detected (NotDetected); Urn Cannabinoid Scrn Detected (NotDetected)
[2020-02-08] MEDS ORDERED: ZIPRASIDONE 20 MG VIAL IM PRN (13:08)
[2020-02-08] MEDS ORDERED: MAGNESIUM HYDROXIDE 2,400 MG/10 ML CUP PO PRN (13:08)
[2020-02-08] MEDS ORDERED: LORazepam 2 MG/ML INJ IM PRN (13:13)
[2020-02-08] MEDS ORDERED: ALBUTEROL INHALER 60 PUFF/8 GM INHALER (MHU) INHALATION PRN (14:33)
--- NOTE | 2020-02-08 14:36 | P.HPMEDMHU ---
History of Present Illness H&P Date: 02/08/20 Chief Complaint: depression Patient is a 54-year-old male with a past medical history of hypertension, COPD, and tobacco abuse who has been admitted to the mental health unit for depression. Patient seen and examined at bedside. He denies any recent cough, cold, fever, flu, nausea, vomiting, diarrhea, or dysuria. He states his been in his normal state of health. He does report that he has been having difficulty sleeping and sleeping at all hours the day for short amounts of time. He reports that he has had a decreased appetite with a recent 9 pound, weight loss. He is unable to tell me over what period of time this weight loss occurred. He is shaking during her catheterization when asked why he reports feeling anxious. He reports anxiety over the fact that the house he is living and is being sold and he does not want to continue to live in under the new landlord. So he thinks that he will be homeless when leaving the mental health unit Review of Systems Pertinent positives and negatives as discussed in HPI, a complete review of systems was performed and all other systems are negative. Past Medical History Past Medical History: COPD, Hypertension History of Any Multi-Drug Resistant Organisms: None Reported Past Surgical History: No Surgical Hx Reported Additional Past Surgical History / Comment(s): ORAL SX Past Anesthesia/Blood Transfusion Reactions: No Reported Reaction Past Psychological History: Bipolar, Schizoaffective Disorder, Schizophrenia Smoking Status: Current every day smoker Past Alcohol Use History: Rare Additional Past Alcohol Use History / Comment(s): SMOKES 2PPD FROM AGE 14 Past Drug Use History: Marijuana - Past Family History Mother Family Medical History: No Reported History Medications and Allergies Home Medications Medication Instructions Recorded Confirmed Type Multivit-Min/FA/Lycopen/Lutein 1 tab PO DAILY 06/29/18 02/08/20 History [Centrum Silver Men Tablet] haloperidoL [Haldol] 5 mg PO DAILY #30 tab 12/24/19 02/08/20 Rx PARoxetine [Paxil] 10 mg PO DAILY 02/08/20 02/08/20 History amLODIPine [Norvasc] 5 mg PO DAILY 02/08/20 02/08/20 History lisinopriL 20 mg PO DAILY 02/08/20 02/08/20 History Allergies Allergy/AdvReac Type Severity Reaction Status Date / Time No Known Allergies Allergy Verified 02/08/20 13:50 Physical Exam Osteopathic Statement: *. No significant issues noted on an osteopathic structural exam other than those noted in the History and Physical/Consult. Vitals: Vital Signs Temp Pulse Pulse Resp BP BP Pulse Ox 02/08/20 13:55 98.2 F 109 H 20 144/32 02/08/20 13:23 98.4 F 98 18 138/88 98 02/08/20 10:53 98.2 F 118 H 18 144/88 98 Intake and Output 02/07/20 02/08/20 02/08/20 22:59 06:59 14:59 Other: Weight 64.183 kg General: non toxic, no distress, appears at stated age Derm: warm, dry Head: atraumatic, normocephalic, symmetric Eyes: EOMI, no lid lag, anicteric sclera, pupils equal round reactive to light ENT: Nose and ears atraumatic, no thrush, no pharyngeal erythema Neck: No thyromegaly, no cervical lymphadenopathy, trachea midline, supple Mouth: no lip lesion, mucus membranes moist Cardiovascular: S1S2 reg, no murmur, positive posterior tibial pulse bilateral, no edema, capillary refill less than 2 seconds Lungs: clear to ascultation bilateral, no ronchi, no rales, no wheeze, no accessory muscle use Abdominal: soft, nontender to palpation, no guarding, no appreciable organomegaly, normal bowel sounds Ext: no gross muscle atrophy, muscle strength muscle strength 5 out of 5 in all 4 extremities, no contractures Neuro: CN II-XI grossly intact, light touch intact all 4 extremities, finger to nose within normal limits, shaking during our conversation but this stops when asked to take deep breaths or do something Psych: Alert, oriented, appears anxious, difficulty with him down in answer to most questions Cranial Nerve Examination - Cranial Nerves Cranial Nerve II- Optic: Intact Cranial Nerve III- Oculomotor: Intact Cranial Nerve IV- Trochlear: Intact Cranial Nerve V- Trigeminal: Intact Cranial Nerve - Abducens: Intact Cranial Nerve VII- Facial: Intact Cranial Nerve VIII- Auditory: Intact Cranial Nerve IX- Glossopharyngeal: Intact Cranial Nerve X- Vagus: Intact Cranial Nerve XI- Accessory: Intact Cranial Nerve XII- Hypoglossal: Intact Results Labs: Abnormal Lab Results - Last 24 Hours (Table) 02/08/20 Range/Units 11:17 U Marijuana (THC) Screen Detected H (NotDetected) Thrombosis Risk Factor Assmnt - DVT/VTE Prophylaxis DVT/VTE Prophylaxis: Low risk, early ambulation encouraged - Choose All That Apply Any of the Below Risk Factors Present?: Yes Each Factor Represents 1 point: Age 41-60 years Other Risk Factors: No Other congenital or acquired thrombophilia - If yes, enter type in comment: No Thrombosis Risk Factor Assessment Total Risk Factor Score: 1 Thrombosis Risk Factor Assessment Level: Low Risk Assessment and Plan Assessment: Blood pressure -Resume home lisinopril and Norvasc -Follow blood pressures Tobacco abuse -Cessation -Nicotine replacement COPD without exacerbation -Per patient is on inhalers at home -add as needed albuterol Depression and anxiety -Your psych management Poor sleep hygiene - start melatonin until seen by [facility] Thank you for allowing us to participate in the care of this pleasant patient. Do not hesitate to contact us with questions. Someone can be reached from the [facility] hospitalist group all hours of the day at [phone] or via perfect serve.
[2020-02-08] MEDS: NICOTINE 14MG/24HR PATCH TRANSDERM SCH (17:14)
[2020-02-08] MEDS: LORazepam 1 MG TAB PO PRN (19:56)
[2020-02-09 07:19] LABS: Basophils # (A) 0.1 k/uL (0-0.2); Basophils % (A) 1 %; Eosinophils # (A) 0.4 k/uL (0-0.7); Eosinophils % (A) 5 %; HCT 44.7 % (39.0-53.0); HGB 14.6 gm/dL (13.0-17.5); Lymphocytes % (A) 13 %; MCH 31.9 pg (25.0-35.0); MCHC 32.7 g/dL (31.0-37.0); MCV 97.4 fL (80.0-100.0); Mean Platelet Volume 6.7; Monocytes # (A) 0.5 k/uL (0-1.0); Monocytes % (A) 7 %; Neutrophils # (A) 5.6 k/uL (1.3-7.7); Neutrophils % (A) 73 %; Platelet Count 295 k/uL (150-450); RBC 4.58 m/uL (4.30-5.90); RDW 12.5 % (11.5-15.5); WBC 7.7 k/uL (3.8-10.6)
[2020-02-09 07:33] LABS: ALT 19 U/L (4-49); AST 30 U/L (17-59); African American GFR (CKD) >90 (>60 ml/min/1.73 sqM); Albumin 4.3 g/dL (3.5-5.0); Alkaline Phosphatase 63 U/L (38-126); Anion Gap 4 mmol/L; Blood Urea Nitrogen 12 mg/dL (9-20); Calcium 9.1 mg/dL (8.4-10.2); Carbon Dioxide 29 mmol/L (22-30); Chloride 99 mmol/L (98-107); Cholesterol 141 mg/dL (<200); Glucose 108 mg/dL (74-99); HDL Cholesterol 72 mg/dL (40-60); LDL Cholesterol,Calculated 54 mg/dL (0-99); Non-African American GFR(CKD) >90 (>60 ml/min/1.73 sqM); Potassium 4.8 mmol/L (3.5-5.1); Sodium 132 mmol/L (137-145); Total Bilirubin 1.1 mg/dL (0.2-1.3); Total Protein 6.8 g/dL (6.3-8.2); Triglycerides 75 mg/dL (<150)
[2020-02-09] MEDS ORDERED: NICOTINE 14MG/24HR PATCH TRANSDERM SCH (09:00)
[2020-02-09] MEDS: NICOTINE 14MG/24HR PATCH TRANSDERM SCH ×3 (09:04→18:26)
[2020-02-09] MEDS: haloperidoL 5 MG TAB PO SCH (09:04)
[2020-02-09] MEDS: lisinopriL 20 MG TAB PO SCH (09:05)
[2020-02-09] MEDS: ACETAMINOPHEN TAB 325 MG TAB PO PRN (09:05)
[2020-02-09] MEDS: amLODIPine 5 MG TAB PO SCH (09:05)
[2020-02-09] MEDS: PARoxetine 10 MG TAB PO SCH (09:05)
[2020-02-09] MEDS: MULTIVITAMINS, THERA 1 EACH TAB PO SCH (09:05)
[2020-02-09 11:38] LABS: Hemoglobin A1C 5.7 % (4.0-6.0)
--- NOTE | 2020-02-09 12:35 | P.HP ---
Psychiatric H&P - . H&P Date: 02/09/20 History & Physical: Allergies Allergy/AdvReac Type Severity Reaction Status Date / Time No Known Allergies Allergy Verified 02/08/20 13:50 Vital Signs Temp 97.9 F 02/09/20 05:05 Pulse 104 H 02/09/20 09:05 Resp 16 02/09/20 05:05 BP 144/97 02/09/20 09:05 Pulse Ox 98 02/08/20 13:23 Intake & Output 02/08/20 02/09/20 02/09/20 18:59 06:59 18:59 Weight 64.183 kg 64.9 kg Laboratory Last Values WBC 7.7 k/uL (3.8-10.6) 02/09/20 06:51 RBC 4.58 m/uL (4.30-5.90) 02/09/20 06:51 Hgb 14.6 gm/dL (13.0-17.5) 02/09/20 06:51 Hct 44.7 % (39.0-53.0) 02/09/20 06:51 MCV 97.4 fL (80.0-100.0) 02/09/20 06:51 MCH 31.9 pg (25.0-35.0) 02/09/20 06:51 MCHC 32.7 g/dL (31.0-37.0) 02/09/20 06:51 RDW 12.5 % (11.5-15.5) 02/09/20 06:51 Plt Count 295 k/uL (150-450) 02/09/20 06:51 Neutrophils % 73 % 02/09/20 06:51 Lymphocytes % 13 % 02/09/20 06:51 Monocytes % 7 % 02/09/20 06:51 Eosinophils % 5 % 02/09/20 06:51 Basophils % 1 % 02/09/20 06:51 Neutrophils # 5.6 k/uL (1.3-7.7) 02/09/20 06:51 Lymphocytes # 1.0 k/uL (1.0-4.8) 02/09/20 06:51 Monocytes # 0.5 k/uL (0-1.0) 02/09/20 06:51 Eosinophils # 0.4 k/uL (0-0.7) 02/09/20 06:51 Basophils # 0.1 k/uL (0-0.2) 02/09/20 06:51 Sodium 132 mmol/L (137-145) L 02/09/20 06:51 Potassium 4.8 mmol/L (3.5-5.1) 02/09/20 06:51 Chloride 99 mmol/L (98-107) 02/09/20 06:51 Carbon Dioxide 29 mmol/L (22-30) 02/09/20 06:51 Anion Gap 4 mmol/L 02/09/20 06:51 BUN 12 mg/dL (9-20) 02/09/20 06:51 Creatinine 0.77 mg/dL (0.66-1.25) 02/09/20 06:51 Est GFR (CKD-EPI)AfAm >90 (>60 ml/min/1.73 sqM) 02/09/20 06:51 Est GFR (CKD-EPI)NonAf >90 (>60 ml/min/1.73 sqM) 02/09/20 06:51 Glucose 108 mg/dL (74-99) H 02/09/20 06:[address] Glu mg/dL 117 02/09/20 06:51 Hemoglobin A1c 5.7 % (4.0-6.0) 02/09/20 06:51 Calcium 9.1 mg/dL (8.4-10.2) 02/09/20 06:51 Total Bilirubin 1.1 mg/dL (0.2-1.3) 02/09/20 06:51 AST 30 U/L (17-59) 02/09/20 06:51 ALT 19 U/L (4-49) 02/09/20 06:51 Alkaline Phosphatase 63 U/L (38-126) 02/09/20 06:51 Total Protein 6.8 g/dL (6.3-8.2) 02/09/20 06:51 Albumin 4.3 g/dL (3.5-5.0) 02/09/20 06:51 Triglycerides 75 mg/dL (<150) 02/09/20 06:51 Cholesterol 141 mg/dL (<200) 02/09/20 06:51 LDL Cholesterol, Calc 54 mg/dL (0-99) 02/09/20 06:51 HDL Cholesterol 72 mg/dL (40-60) H 02/09/20 06:51 TSH 0.546 mIU/L (0.465-4.680) 02/09/20 06:51 Urine Opiates Screen Not Detected (NotDetected) 02/08/20 11:17 Ur Oxycodone Screen Not Detected (NotDetected) 02/08/20 11:17 Urine Methadone Screen Not Detected (NotDetected) 02/08/20 11:17 Ur Propoxyphene Screen Not Detected (NotDetected) 02/08/20 11:17 Ur Barbiturates Screen Not Detected (NotDetected) 02/08/20 11:17 U Tricyclic Antidepress Not Detected (NotDetected) 02/08/20 11:17 Ur Phencyclidine Scrn Not Detected (NotDetected) 02/08/20 11:17 Ur Amphetamines Screen Not Detected (NotDetected) 02/08/20 11:17 U Methamphetamines Scrn Not Detected (NotDetected) 02/08/20 11:17 U Benzodiazepines Scrn Not Detected (NotDetected) 02/08/20 11:17 Urine Cocaine Screen Not Detected (NotDetected) 02/08/20 11:17 U Marijuana (THC) Screen Detected (NotDetected) H 02/08/20 11:17 02/09/20 12:14 IDENTIFYING DATA: Patient is a 54-year-old male who currently lives in a duplex with a roommate has no kids is single and collects Social Security disability. HPI: Patient presented to the hospital yesterday with complaints of anxiety and depression along with suicidal thoughts for the past 1-2 days. Patient had a UDS which was positive for THC on admission. Patient was agreeable to a seen by fha underwriter today. Patient was last discharged from mental health unit in late December 2019 after being switched on to Haldol and Paxil. Patient currently follows up with [facility]. He claimed to fha underwriter that he was feeling confused and upset yesterday and states that he was having suicidal thoughts as feeling overwhelmed. He claimed that he was driving his car and it ran out of gas and he was walking around aimlessly and left his car. He states that he was brought into the hospital for evaluation and was suicidal at that time however claims that at this point now he does not feel suicidal. He claims that he has been taking his medications "on and off". He states that he suffers from loneliness and also endorsed some paranoia towards his roommate and his neighbor who lives downstairs. He states that "they're probably into some legal stuff which I can't talk about". He did state that his mood is "okay now" and claims to have fair sleep. He denied any manic symptoms. Patient denies any suicidal or homicidal ideations intent or plan. At this time patient denies any auditory or visual hallucinations. Patient denies any flight of ideas racing thoughts and increased in goal directed behavior. Patient admits to using marijuana daily and alcohol daily approximately 4 cans of beer per day. He denies any withdrawal symptoms or any delirium tremens. He admits to smoking cigarettes daily. PAST PSYCHIATRIC HISTORY: Patient states that he has schizophrenia. Patient was previously on Haldol 5 mg daily and Paxil 10 mg daily at bedtime. Patient claims that he is been admitted several times to various hospitals "for the past 30 years" and was last admitted to the mental health unit in December 2019. He states that he follows up with Dr. Watkins at [facility]. Patient denies any history of suicide attempts in the past. PMH: Hypertension and COPD. ALLERGIES: as per EMR CHEMICAL DEPENDENCY HISTORY: as per HPI FAMILY PSYCHIATRIC/SUBSTANCE USE HISTORY: He states that his uncle has severe mental illness and has attempted suicide. SOCIAL HISTORY: Patient was born and raised in [place] and raised in [place]. 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 He states that he has some college and completed high school. He claims that he does not have any legal history or any history. He currently lives in a duplex with a roommate has no kids is single and collects SSD.. MENTAL STATUS EXAM: General Appearance: Patient appears to be stated age is alert, directable, and attempts to cooperate. Patient appears to have poor hygiene and grooming. Behavior: Patient is seated without any agitated behavior. Attempts to be cooperative. Speech: Patient's speech is fluent and nonpressured. Mood/Affect: Patient reports their mood is "okay now", affect is congruent and constricted. Suicidality/Homicidality: Patient denies having any homicidal ideation intent or plan. Denies any suicidal ideations intent or plan Perceptions: Patient denies any visual hallucinations and denies any auditory hallucinations Though content/process: There is no evidence of any delusional thought content a nd thought process is linear and goal-directed. [place], superficial. Paranoid at times. Memory and concentration: AOX3, grossly intact for the purposes of this session. Can spell "WORLD" backwards Judgment and insight: Chronically poor STRENGTHS/WEAKNESSES: strength is that patient is resilient. Weakness is that patient has poor judgment and has a history of chronic mental illness. INTELLECT: average IMPRESSIONS: Schizophrenia Cannabis use disorder Alcohol use disorder Nicotine dependence PLAN: -Patient is admitted under voluntary status to MHU for stabilization of psychiatric symptoms and safety. Patient signed adult voluntary form and medication consent and is placed in patient's chart. -Medications : Will start patient on Haldol 5 mg daily for psychosis/paranoia. Continue with Paxil 10 mg daily at bedtime. Dry Roller spoke with patient about switching patient onto Haldol D to ensure compliance and patient is agreeable to that tomorrow. -Ativan and Geodon PRN for agitation/aggression -thiamine, MVM for etoh use -CIWA protocol with Ativan PRN for ETOH withdrawal -Patient was counselled on substance abuse and desired to cut back on use -Patient was informed of the risks, benefits and side effects of the medication and patient verbally consented to taking the medications. Patient signed med consent form and was placed in chart. -Internal Medicine consult to perform medical evaluation and physical. -NRT - nicotine patch - on board for discharge planning. Encourage patient to participate in groups to work on coping skills. We'll look into patient going to outpatient groups with [facility] upon discharge. We'll look into other options for housing upon discharge.
[2020-02-09] MEDS: FOLIC ACID 1 MG TAB PO SCH (13:19)
[2020-02-09] MEDS: THIAMINE 100 MG TAB PO SCH (13:19)
[2020-02-09] MEDS: MAG HYDROX/AL HYDROX/SIMETH 30 ML CUP PO PRN (21:12)
[2020-02-10] MEDS: LORazepam 1 MG TAB PO PRN ×2 (00:02→14:34)
[2020-02-10] MEDS: haloperidoL 5 MG TAB PO SCH (09:21)
[2020-02-10] MEDS: amLODIPine 5 MG TAB PO SCH (09:21)
[2020-02-10] MEDS: FOLIC ACID 1 MG TAB PO SCH (09:21)
[2020-02-10] MEDS: lisinopriL 20 MG TAB PO SCH (09:21)
[2020-02-10] MEDS: PARoxetine 10 MG TAB PO SCH (09:22)
[2020-02-10] MEDS: THIAMINE 100 MG TAB PO SCH (09:22)
[2020-02-10] MEDS: NICOTINE 14MG/24HR PATCH TRANSDERM SCH ×2 (09:22→13:05)
[2020-02-10] MEDS: MULTIVITAMINS, THERA 1 EACH TAB PO SCH (09:22)
[2020-02-10] MEDS: ACETAMINOPHEN TAB 325 MG TAB PO PRN ×2 (09:23→15:08)
--- NOTE | 2020-02-10 11:41 | P.PN ---
Progress Note - Text Progress Note Date: 02/10/20 Interval History: Patient was seen taking part in group today and was directable and agreeable to speak with ghost writer in the office. Patient was hyperverbal today and speaking about his car that he had lost and claims that he does not know what to do and does not know where he should be going after the hospital. He spoke about many different ideas today. He claimed that he has been going to groups and try to participate. He states that his mood is gradually improving. He denies any paranoia today. He claims that he was able to sleep well last night approximately 5-6 hours. He states that he has a fair appetite. At this time patient denies any suicidal or homical ideations, intent or plan. Patient denies any auditory, visual hallucinations and denies any paranoia or delusions. Patient denies any side effects from the medications and has been compliant with meds. Mental Status Exam: General Appearance: Patient appears to be stated age is alert, directable, and attempts to cooperate. Patient appears to have poor hygiene and grooming. Behavior: Patient is seated without any agitated behavior. Attempts to be cooperative. Speech: Patient's speech is fluent and nonpressured. Mood/Affect: Patient reports their mood is "better", affect is congruent and constricted. Suicidality/Homicidality: Patient denies having any homicidal ideation intent or plan. Denies any suicidal ideations intent or plan Perceptions: Patient denies any visual hallucinations and denies any auditory hallucinations Though content/process: There is no evidence of any delusional thought content and thought process tangential.. Several ideas. Memory and concentration: AOX3, grossly intact for the purposes of this session Judgment and insight: Chronically poor, improving mildly Assessment Schizophrenia Cannabis use disorder Alcohol use disorder Nicotine dependence Plan: -Patient continues to meet criteria for inpatient psychiatric admission for symptom stabilization and safety. Patient has signed adult voluntary form and medication consent and was placed in patient's chart. -Medications: Increased Haldol to 3 mg twice a day for psychosis/paranoia. Continue Paxil 10 mg daily at bedtime for mood. We will eventually transition patient onto Haldol D to ensure compliance -When necessary Ativan and Geodon for agitation/aggression. -thiamine, MVM for etoh use -CIWA protocol with Ativan PRN for ETOH withdrawal -NRT - nicotine patch -SW on board for discharge planning. Encouraged the patient to participate in milieu. We'll look into patient going to outpatient groups with [facility] upon discharge. We'll look into other options for housing upon discharge. structural metal worker to assist patient with helping to find his car.
[2020-02-10] MEDS: MAG HYDROX/AL HYDROX/SIMETH 30 ML CUP PO PRN (15:08)
[2020-02-10] MEDS: haloperidoL 1 MG TAB PO SCH (20:33)
[2020-02-11] MEDS: ESCITALOPRAM 10 MG TAB PO SCH (08:35)
[2020-02-11] MEDS: amLODIPine 5 MG TAB PO SCH (08:35)
[2020-02-11] MEDS: FOLIC ACID 1 MG TAB PO SCH (08:35)
[2020-02-11] MEDS: MULTIVITAMINS, THERA 1 EACH TAB PO SCH (08:35)
[2020-02-11] MEDS: THIAMINE 100 MG TAB PO SCH (08:35)
[2020-02-11] MEDS: lisinopriL 20 MG TAB PO SCH (08:35)
[2020-02-11] MEDS: haloperidoL 1 MG TAB PO SCH ×2 (08:36→22:03)
[2020-02-11] MEDS: NICOTINE 14MG/24HR PATCH TRANSDERM SCH (08:36)
--- NOTE | 2020-02-11 09:03 | P.PN ---
Progress Note - Text Progress Note Date: 02/11/20 Interval History: Patient was seen lying in bed this morning after breakfast and was directable and agreeable to speak with auto service writer in the office. Patient claims that he is feeling anxious today and states that "there is a lot of anxiety in the air" and states that "maybe it's the weather" referring to the change in weather outside. He states that he has been thinking a lot about his home situation and whether he'll be going there snf and he leaves the hospital. He claims that he feels "helpless" and overwhelmed. He denied any depression today denied any suicidal thoughts. Patient needs to be hyperverbal today and speaking about his car. He states that he has located at a calling that number however will need to pay money to get it. He claimed that he has been going to groups and try to participate. He denies any paranoia today. He claims that he was able to sleep well last night approximately 5-6 hours. He states that he has a fair appetite. At this time patient denies any suicidal or homical ideations, intent or plan. Patient denies any auditory, visual hallucinations and denies any paranoia or delusions. Patient denies any side effects from the medications and has been compliant with meds. Mental Status Exam: General Appearance: Patient appears to be stated age is alert, directable, and attempts to cooperate. Patient appears to have poor hygiene and grooming. Behavior: Patient is seated without any agitated behavior. Attempts to be cooperative. Speech: Patient's speech is fluent and nonpressured. Talkative. Mood/Affect: Patient reports their mood is "anxious", affect is congruent and anxious affect. Suicidality/Homicidality: Patient denies having any homicidal ideation intent or plan. Denies any suicidal ideations intent or plan Perceptions: Patient denies any visual hallucinations and denies any auditory hallucinations Though content/process: There is no evidence of any delusional thought content and thought process tangential. Several ideas. Memory and concentration: AOX3, grossly intact for the purposes of this session Judgment and insight: Chronically poor, improving mildly Assessment: Schizophrenia Cannabis use disorder Alcohol use disorder Nicotine dependence Plan: -Patient continues to meet criteria for inpatient psychiatric admission for symptom stabilization and safety. Patient has signed adult voluntary form and medication consent and was placed in patient's chart. -Medications: Continue with Haldol to 3 mg twice a day for psychosis/paranoia.changed PAxil with Lexapro to help more with anxiety and decrease risk for side effects. WIll start at 10mg daily. will give Haldol D 100mg tomorrow. -When necessary Ativan and Geodon for agitation/aggression. -thiamine, MVM for etoh use -CIWA protocol with Ativan PRN for ETOH withdrawal. will be discontinued tomorrow likely. -NRT - nicotine patch - on board for discharge planning. Encouraged the patient to participate in milieu. We'll look into patient going to outpatient groups with [facility] upon discharge. We'll look into other options for housing upon discharge. likely disicharge monday
[2020-02-11] MEDS: ACETAMINOPHEN TAB 325 MG TAB PO PRN ×2 (16:40→23:46)
[2020-02-11] MEDS ORDERED: MELATONIN 5 MG TABLET PO SCH (21:00)
[2020-02-11] MEDS: LORazepam 1 MG TAB PO PRN (23:45)
[2020-02-12] MEDS: THIAMINE 100 MG TAB PO SCH (08:44)
[2020-02-12] MEDS: MULTIVITAMINS, THERA 1 EACH TAB PO SCH (08:44)
[2020-02-12] MEDS: FOLIC ACID 1 MG TAB PO SCH (08:44)
[2020-02-12] MEDS: lisinopriL 20 MG TAB PO SCH (08:44)
[2020-02-12] MEDS: NICOTINE 14MG/24HR PATCH TRANSDERM SCH (08:44)
[2020-02-12] MEDS: amLODIPine 5 MG TAB PO SCH (08:44)
[2020-02-12] MEDS: ESCITALOPRAM 10 MG TAB PO SCH (08:44)
[2020-02-12] MEDS: haloperidoL 1 MG TAB PO SCH (10:04)
[2020-02-12] MEDS ORDERED: LORazepam 0.5 MG TAB PO PRN (10:15)
--- NOTE | 2020-02-12 10:40 | P.PN ---
Progress Note - Text Progress Note Date: 02/12/20 Interval History: Patient was seen lying in bed this morning and was directable and agreeable to speak with credit underwriter in the office. He states that he is feeling less anxious and less depressed today however continues to be preoccupied with his social problems. He states that he spoke with his mother who he claims has been "continuing to treat me like a kid". Patient appeared to be directable and cooperative with credit underwriter today. He endorsed no overnight complaints however this morning states that he is feeling tired. He states that "I have to get used to my medications and the changes. He was agreeable to take the Haldol D however requested to have it later on in the day today. He denied any depression today denied any suicidal thoughts. Patient needs to be hyperverbal today and speaking about his car. He claimed that he has been going to groups and try to participate. He denies any paranoia today. He claims that he was able to sleep well last night approximately 5-6 hours. He states that he has a fair appetite. At this time patient denies any suicidal or homical ideations, intent or plan. Patient denies any auditory, visual hallucinations and denies any paranoia or delusions. Patient denies any side effects from the medications and has been compliant with meds. Mental Status Exam: General Appearance: Patient appears to be stated age is alert, more directable, and attempts to cooperate. Patient appears to have improving hygiene and grooming. Behavior: Patient is seated without any agitated behavior. Attempts to be cooperative. Speech: Patient's speech is fluent and nonpressured. Talkative. Polite. Mood/Affect: Patient reports their mood is "a bit better", affect is congruent and anxious affect. Suicidality/Homicidality: Patient denies having any homicidal ideation intent or plan. Denies any suicidal ideations intent or plan Perceptions: Patient denies any visual hallucinations and denies any auditory hallucinations Though content/process: There is no evidence of any delusional thought content and thought process tangential. Several ideas and preoccupied with psychosocial stressors. Memory and concentration: AOX3, grossly intact for the purposes of this session Judgment and insight: Chronically poor, improving mildly Assessment: Schizophrenia Cannabis use disorder Alcohol use disorder Nicotine dependence Plan: -Patient continues to meet criteria for inpatient psychiatric admission for symptom stabilization and safety. Patient has signed adult voluntary form and medication consent and was placed in patient's chart. -Medications: Decreased PO Haldol to 2 mg twice a day for psychosis/paranoia. continue with Lexapro 10mg daily for mood/anxiety. will give Haldol D 75mg IM today to ensure compliance. Next dose will be due 03/04/2020 -When necessary Ativan and Geodon for agitation/aggression. -thiamine, MVM for etoh use -NRT - nicotine patch -SW on board for discharge planning. Encouraged the patient to participate in milieu. We'll look into patient going to outpatient groups with [facility] upon discharge. We'll look into other options for housing upon discharge. likely disicharge monday
[2020-02-12] MEDS: MAG HYDROX/AL HYDROX/SIMETH 30 ML CUP PO PRN (14:25)
[2020-02-12] MEDS ORDERED: HALOPERIDOL DECANOATE 50 MG/ML 1 ML VIAL IM ONE (18:00)
[2020-02-12] MEDS: MELATONIN 5 MG TABLET PO SCH (21:30)
[2020-02-13 07:16] VITALS: TEMP 98.2
[2020-02-13] MEDS: THIAMINE 100 MG TAB PO SCH (09:37)
[2020-02-13] MEDS: ESCITALOPRAM 10 MG TAB PO SCH (09:37)
[2020-02-13] MEDS: NICOTINE 14MG/24HR PATCH TRANSDERM SCH (09:37)
[2020-02-13] MEDS: MULTIVITAMINS, THERA 1 EACH TAB PO SCH (09:37)
[2020-02-13] MEDS: FOLIC ACID 1 MG TAB PO SCH (09:37)
[2020-02-13] MEDS: lisinopriL 20 MG TAB PO SCH (09:37)
[2020-02-13] MEDS: amLODIPine 5 MG TAB PO SCH (09:37)
--- NOTE | 2020-02-13 10:25 | P.PN ---
Progress Note - Text Progress Note Date: 02/13/20 Interval History: Patient was seen this morning after coming out of group and was near the nurse's desk and was directable and agreeable to speak with personal lines underwriter in the office. Patient continues to be talkative and speaking about his discharge plans and what he needs to do in his life. He claims that he is feeling less anxious today and his mood as been improving. He claims that he is likely going to be going back to his house where he was prior to coming into the hospital and states that he'll have 1 month to "figure things out on where he can move". He continues to speak about loneliness and wanting to go to groups. Patient appeared to be directable and cooperative with personal lines underwriter today. He endorsed no overnight complaints however this morning states that he was able to sleep better last night. He claims that he does not feel tired today. Patient claims that he tolerated the Haldol D injection well yesterday. He denied any suicidal thoughts. He claimed that he has been going to groups and try to participate. He denies any paranoia today. He states that he has a fair appetite. At this time patient denies any suicidal or homical ideations, intent or plan. Patient denies any auditory, visual hallucinations and denies any paranoia or delusions. Patient denies any side effects from the medications and has been compliant with meds. Mental Status Exam: General Appearance: Patient appears to be stated age is alert, more directable, and attempts to cooperate. Patient appears to have improving hygiene and grooming. Behavior: Patient is seated without any agitated behavior. Attempts to be cooperative. Speech: Patient's speech is fluent and nonpressured. Talkative. Polite. Mood/Affect: Patient reports their mood is "better", affect is congruent Suicidality/Homicidality: Patient denies having any homicidal ideation intent or plan. Denies any suicidal ideations intent or plan Perceptions: Patient denies any visual hallucinations and denies any auditory hallucinations Though content/process: There is no evidence of any delusional thought content and thought process tangential. preoccupied with psychosocial stressors and discharge. Memory and concentration: AOX3, grossly intact for the purposes of this session Judgment and insight: Chronically poor, improving mildly Assessment: Schizophrenia Cannabis use disorder Alcohol use disorder Nicotine dependence Plan: -Patient continues to meet criteria for inpatient psychiatric admission for symptom stabilization and safety. Patient has signed adult voluntary form and medication consent and was placed in patient's chart. -Medications: Decreased PO Haldol to 1 mg twice a day for psychosis/paranoia, then to be discotninued tomorrow afternoon. continue with Lexapro 10mg daily for mood/anxiety, this can be increased tomorrow if needed/tolerated. Patient was given Haldol D 75mg IM on 02/12/2020 and the next dose will be due 03/04/2020 and [id number] afterwards. Continue with Melatonin 10mg qhs for insomnia. -When necessary Ativan and Geodon for agitation/aggression. -thiamine, MVM for etoh use -NRT - nicotine patch -SW on board for discharge planning. Encouraged the patient to participate in milieu. We'll look into patient going to outpatient groups with [facility] upon discharge. Patient will be discharged tomorrow back to prior residence.
[2020-02-13] MEDS: MELATONIN 5 MG TABLET PO SCH (21:18)
[2020-02-13] MEDS: haloperidoL 1 MG TAB PO SCH (21:18)
[2020-02-14] MEDS: ESCITALOPRAM 10 MG TAB PO SCH (08:49)
[2020-02-14] MEDS: NICOTINE 14MG/24HR PATCH TRANSDERM SCH (08:49)
[2020-02-14] MEDS: FOLIC ACID 1 MG TAB PO SCH (08:49)
[2020-02-14] MEDS: amLODIPine 5 MG TAB PO SCH (08:49)
[2020-02-14] MEDS: THIAMINE 100 MG TAB PO SCH (08:50)
[2020-02-14] MEDS: haloperidoL 1 MG TAB PO SCH (08:50)
[2020-02-14] MEDS: MULTIVITAMINS, THERA 1 EACH TAB PO SCH (08:50)
[2020-02-14] MEDS: lisinopriL 20 MG TAB PO SCH (08:50)
[2020-02-14 08:53] VITALS: BP 146/87; PULSE 92; RESP 20
[2020-02-14 11:44] VITALS: BMI 22.4
== END 2020-02-14 17:00 | disposition home or self-care (01) | DRG 885 ==
LOC: EC 10:50 → 3MHU 13:06
PROVIDERS: ADMIT Psychiatry & Neurology Psychiatry; ATTEND Psychiatry & Neurology Psychiatry
DX: F25.9 Schizoaffective disorder, unspecified (principal); R45.851 Suicidal ideations; F10.10 Alcohol abuse, uncomplicated; F12.10 Cannabis abuse, uncomplicated; Z71.41 Alcohol abuse counseling and surveillance of alcoholic; Z71.51 Drug abuse counseling and surveillance of drug abuser; Z71.6 Tobacco abuse counseling; F41.9 Anxiety disorder, unspecified; F17.210 Nicotine dependence, cigarettes, uncomplicated; I10 Essential (primary) hypertension; J44.9 Chronic obstructive pulmonary disease, unspecified; F32.9 Major depressive disorder, single episode, unspecified; G47.9 Sleep disorder, unspecified; Z59.0 Homelessness; Z79.899 Other long term (current) drug therapy
CPT/HCPCS: 80053; 80061; 80306; 82075; 83036; 84443; 85025; 99285

== ENCOUNTER 2020-03-21 10:18 | Emergency (ER) | payer MEDICARE, OTHER ==
[2020-03-21] MEDS ORDERED: ONDANSETRON 4 MG/2 ML VIAL IVP STA (10:23)
[2020-03-21] MEDS ORDERED: SODIUM CHLORIDE 0.9% 1,000 ML IV ONE (10:23)
[2020-03-21] MEDS ORDERED: diphenhydrAMINE 50 MG/ML 1 ML VIAL IVP STA (10:23)
[2020-03-21 10:47] LABS: Appearance,Urine Clear (Clear); Bilirubin,Urine Negative (Negative); Blood,Urine Negative (Negative); Color,Urine Light Yellow; Glucose,Urine (UA) Negative (Negative); Ketones,Urine Trace (Negative); Leukocyte Esterase,Urine Negative (Negative); Nitrite,Urine Negative (Negative); PH, Urine 6.5 (5.0-8.0); Protein,Urine Negative (Negative); Specific Gravity,Urine 1.001 (1.001-1.035); Urobilinogen,Urine <2.0 mg/dL (<2.0)
[2020-03-21 10:49] LABS: Basophils % (A) 0 %; Eosinophils # (A) 0.2 k/uL (0-0.7); Eosinophils % (A) 2 %; HCT 47.1 % (39.0-53.0); HGB 15.7 gm/dL (13.0-17.5); Lymphocytes # (A) 0.9 k/uL (1.0-4.8); Lymphocytes % (A) 8 %; MCH 31.6 pg (25.0-35.0); MCHC 33.3 g/dL (31.0-37.0); MCV 95.1 fL (80.0-100.0); Mean Platelet Volume 6.2; Monocytes # (A) 0.6 k/uL (0-1.0); Monocytes % (A) 5 %; Neutrophils # (A) 9.9 k/uL (1.3-7.7); Neutrophils % (A) 85 %; Platelet Count 326 k/uL (150-450); RBC 4.95 m/uL (4.30-5.90); RDW 12.3 % (11.5-15.5); WBC 11.6 k/uL (3.8-10.6)
[2020-03-21] MEDS ORDERED: lisinopriL 20 MG TAB PO STA (10:54)
[2020-03-21 10:55] LABS: ALT 25 U/L (4-49); AST 32 U/L (17-59); African American GFR (CKD) >90 (>60 ml/min/1.73 sqM); Albumin 4.5 g/dL (3.5-5.0); Alkaline Phosphatase 63 U/L (38-126); Anion Gap 6 mmol/L; Blood Urea Nitrogen 4 mg/dL (9-20); Calcium 9.3 mg/dL (8.4-10.2); Carbon Dioxide 23 mmol/L (22-30); Chloride 95 mmol/L (98-107); Glucose 109 mg/dL (74-99); Non-African American GFR(CKD) >90 (>60 ml/min/1.73 sqM); Sodium 124 mmol/L (137-145); Total Bilirubin 1.7 mg/dL (0.2-1.3); Total Protein 7.3 g/dL (6.3-8.2)
--- NOTE | 2020-03-21 10:56 | ED ---
Psych HPI - General Chief Complaint: Psychiatric Symptoms Stated Complaint: Mental Health Time Seen by Provider: 03/21/20 10:21 Source: patient, EMS, RN notes reviewed Mode of arrival: EMS Limitations: no limitations - History of Present Illness Initial Comments: 54-year-old male presents emergency Department with chief complaint of nausea vomiting psych issues. Patient states he was recently hospitalized for hallucinations, psychosis anxiety. Patient states he started new medications he does not know what they are. He states he just does not feel well. He states she's been so anxious that his been vomiting. He denies any localized abdominal pain. He's also had some slight diarrhea. No fevers or chills. Patient states is all related back to his anxiety. Patient states he cannot tolerate ligamentous. He denies being suicidal though he states he called a friend last night stating that he wanted to harm himself. He denies any drug use he does admit to alcohol use approximately 5 beers on most days. - Related Data Home Medications Medication Instructions Recorded Confirmed Multivit-Min/FA/Lycopen/Lutein 1 tab PO DAILY 06/29/18 03/21/20 [Centrum Silver Men Tablet] amLODIPine [Norvasc] 5 mg PO DAILY 02/08/20 03/21/20 lisinopriL 20 mg PO DAILY 02/08/20 03/21/20 Ascorbic Acid [Vitamin C] 1,000 mg PO DAILY 03/21/20 03/21/20 Escitalopram [Lexapro] 20 mg PO DAILY 03/21/20 03/21/20 Haloperidol Decanoate [Haldol D] 75 mg IM DIRECTED 03/21/20 03/21/20 Vitamin B Complex 1 cap PO DAILY 03/21/20 03/21/20 haloperidoL [Haloperidol] 2 mg PO HS 03/21/20 03/21/20 Previous Rx's Medication Instructions Recorded Nicotine 14Mg/24Hr Patch [Habitrol] 1 patch TRANSDERM DAILY patch 02/14/20 PARoxetine [Paxil] 10 mg PO DAILY #30 tab 02/14/20 Allergies Allergy/AdvReac Type Severity Reaction Status Date / Time No Known Allergies Allergy Verified 03/21/20 11:02 Review of Systems ROS Statement: Those systems with pertinent positive or pertinent negative responses have been documented in the HPI. ROS Other: All systems not noted in ROS Statement are negative. Past Medical History Past Medical History: COPD, Hypertension History of Any Multi-Drug Resistant Organisms: None Reported Past Surgical History: No Surgical Hx Reported Additional Past Surgical History / Comment(s): ORAL SX Past Anesthesia/Blood Transfusion Reactions: No Reported Reaction Past Psychological History: Bipolar, Schizoaffective Disorder, Schizophrenia Smoking Status: Current every day smoker Past Alcohol Use History: Rare Past Drug Use History: Marijuana - Past Family History Mother Family Medical History: No Reported History General Exam General appearance: alert, in no apparent distress Head exam: Present: atraumatic, normocephalic, normal inspection Eye exam: Present: normal appearance, PERRL, EOMI. Absent: scleral icterus, conjunctival injection, periorbital swelling ENT exam: Present: normal exam, normal oropharynx, mucous membranes moist Neck exam: Present: normal inspection, full ROM. Absent: tenderness, menin gismus, lymphadenopathy Respiratory exam: Present: normal lung sounds bilaterally. Absent: respiratory distress, wheezes, rales, rhonchi, stridor Cardiovascular Exam: Present: regular rate, normal rhythm, normal heart sounds. Absent: systolic murmur, diastolic murmur, rubs, gallop, clicks GI/Abdominal exam: Present: soft, normal bowel sounds. Absent: distended, tenderness, guarding, rebound, rigid Back exam: Absent: CVA tenderness (R), CVA tenderness (L) Neurological exam: Present: alert, oriented X3 Skin exam: Present: warm, dry, intact, normal color. Absent: rash Course Vital Signs 03/21/20 10:21 Temperature 98.3 F Pulse Rate 84 Respiratory 18 Rate Blood Pressure 163/104 O2 Sat by Pulse 100 Oximetry - Reevaluation(s) Reevaluation #1: 03/21/20 14:12 Patient had repeat BMP for mild hyponatremia, currently asymptomatic Reevaluation #2: 03/21/20 14:22 Patient reevaluated patient resting comfortably, tolerating oral intake. Patient has no current abdominal pain no ataxia no confusion. Medical Decision Making - Medical Decision Making Patient was evaluated by EPS and was clear EPS for discharge home patient is not currently suicidal. Patient has underlying anxiety. Patient did have mild hyponatremia was hydrated, given antiemetics here feels greatly improved. Patient has no neurological symptoms. Patient be discharged. - Lab Data Result diagrams: 03/21/20 10:34 03/21/20 14:01 Lab Results 03/21/20 03/21/20 03/21/20 Range/Units 10:34 10:34 10:34 WBC 11.6 H (3.8-10.6) k/uL RBC 4.95 (4.30-5.90) m/uL Hgb 15.7 (13.0-17.5) gm/dL Hct 47.1 (39.0-53.0) % MCV 95.1 (80.0-100.0) fL MCH 31.6 (25.0-35.0) pg MCHC 33.3 (31.0-37.0) g/dL RDW 12.3 (11.5-15.5) % Plt Count 326 (150-450) k/uL Neutrophils % 85 % Lymphocytes % 8 % Monocytes % 5 % Eosinophils % 2 % Basophils % 0 % Neutrophils # 9.9 H (1.3-7.7) k/uL Lymphocytes # 0.9 L (1.0-4.8) k/uL Monocytes # 0.6 (0-1.0) k/uL Eosinophils # 0.2 (0-0.7) k/uL Basophils # 0.0 (0-0.2) k/uL Sodium 124 L (137-145) mmol/L Potassium 4.0 (3.5-5.1) mmol/L Chloride 95 L (98-107) mmol/L Carbon Dioxide 23 (22-30) mmol/L Anion Gap 6 mmol/L BUN 4 L (9-20) mg/dL Creatinine 0.54 L (0.66-1.25) mg/dL Est GFR (CKD-EPI)AfAm >90 (>60 ml/min/1.73 sqM) Est GFR (CKD-EPI)NonAf >90 (>60 ml/min/1.73 sqM) Glucose 109 H (74-99) mg/dL Calcium 9.3 (8.4-10.2) mg/dL Total Bilirubin 1.7 H (0.2-1.3) mg/dL AST 32 (17-59) U/L ALT 25 (4-49) U/L Alkaline Phosphatase 63 (38-126) U/L Total Protein 7.3 (6.3-8.2) g/dL Albumin 4.5 (3.5-5.0) g/dL Lipase 156 (23-300) U/L Urine Color Light Yellow Urine Appearance Clear (Clear) Urine pH 6.5 (5.0-8.0) Ur Specific [place] 1.001 (1.001-1.035) Urine Protein Negative (Negative) Urine Glucose (UA) Negative (Negative) Urine Ketones Trace H (Negative) Urine Blood Negative (Negative) Urine Nitrite Negative (Negative) Urine Bilirubin Negative (Negative) Urine Urobilinogen <2.0 (<2.0) mg/dL Ur Leukocyte Esterase Negative (Negative) Urine Opiates Screen Not Detected (NotDetected) Ur Oxycodone Screen Not Detected (NotDetected) Urine Methadone Screen Not Detected (NotDetected) Ur Propoxyphene Screen Not Detected (NotDetected) Ur Barbiturates Screen Not Detected (NotDetected) U Tricyclic Antidepress Not Detected (NotDetected) Ur Phencyclidine Scrn Not Detected (NotDetected) Ur Amphetamines Screen Not Detected (NotDetected) U Methamphetamines Scrn Not Detected (NotDetected) U Benzodiazepines Scrn Not Detected (NotDetected) Urine Cocaine Screen Not Detected (NotDetected) U Marijuana (THC) Screen Detected H (NotDetected) 03/21/20 Range/Units 14:01 WBC (3.8-10.6) k/uL RBC (4.30-5.90) m/uL Hgb (13.0-17.5) gm/dL Hct (39.0-53.0) % MCV (80.0-100.0) fL MCH (25.0-35.0) pg MCHC (31.0-37.0) g/dL RDW (11.5-15.5) % Plt Count (150-450) k/uL Neutrophils % % Lymphocytes % % Monocytes % % Eosinophils % % Basophils % % Neutrophils # (1.3-7.7) k/uL Lymphocytes # (1.0-4.8) k/uL Monocytes # (0-1.0) k/uL Eosinophils # (0-0.7) k/uL Basophils # (0-0.2) k/uL Sodium 130 L (137-145) mmol/L Potassium 4.5 (3.5-5.1) mmol/L Chloride 97 L (98-107) mmol/L Carbon Dioxide 26 (22-30) mmol/L Anion Gap 7 mmol/L BUN 8 L (9-20) mg/dL Creatinine 0.63 L (0.66-1.25) mg/dL Est GFR (CKD-EPI)AfAm >90 (>60 ml/min/1.73 sqM) Est GFR (CKD-EPI)NonAf >90 (>60 ml/min/1.73 sqM) Glucose 97 (74-99) mg/dL Calcium 9.4 (8.4-10.2) mg/dL Total Bilirubin (0.2-1.3) mg/dL AST (17-59) U/L ALT (4-49) U/L Alkaline Phosphatase (38-126) U/L Total Protein (6.3-8.2) g/dL Albumin (3.5-5.0) g/dL Lipase (23-300) U/L Urine Color Urine Appearance (Clear) Urine pH (5.0-8.0) Ur Specific [place] (1.001-1.035) Urine Protein (Negative) Urine Glucose (UA) (Negative) Urine Ketones (Negative) Urine Blood (Negative) Urine Nitrite (Negative) Urine Bilirubin (Negative) Urine Urobilinogen (<2.0) mg/dL Ur Leukocyte Esterase (Negative) Urine Opiates Screen (NotDetected) Ur Oxycodone Screen (NotDetected) Urine Methadone Screen (NotDetected) Ur Propoxyphene Screen (NotDetected) Ur Barbiturates Screen (NotDetected) U Tricyclic Antidepress (NotDetected) Ur Phencyclidine Scrn (NotDetected) Ur Amphetamines Screen (NotDetected) U Methamphetamines Scrn (NotDetected) U Benzodiazepines Scrn (NotDetected) Urine Cocaine Screen (NotDetected) U Marijuana (THC) Screen (NotDetected) Disposition Clinical Impression: Anxiety Disposition: HOME SELF-CARE Condition: Stable Instructions (If sedation given, give patient instructions): Anxiety (ED) Additional Instructions: Please return to the Emergency Department if symptoms worsen or any other samm rns. Is patient prescribed a controlled substance at d/c from ED?: No Referrals: Pashley,Peter, DO [Primary Care Provider] - 1-2 days Time of Disposition: 14:23
[2020-03-21 11:00] LABS: Amphetamine Screen,Urine Not Detected (NotDetected); Barbiturate Screen,Urine Not Detected (NotDetected); Benzodiazepines Screen,Urine Not Detected (NotDetected); Cocaine Screen,Urine Not Detected (NotDetected); Methadone Screen, Urine Not Detected (NotDetected); Opiate Screen,Urine Not Detected (NotDetected); Oxycodone Screen, Urine Not Detected (NotDetected); Phencyclidine Screen,Urine Not Detected (NotDetected); Tricyclic Antidepressant,Urine Not Detected (NotDetected); Urn Cannabinoid Scrn Detected (NotDetected)
[2020-03-21] MEDS ORDERED: SODIUM CHLORIDE 0.9% 1,000 ML IV SCH (11:30)
[2020-03-21 14:18] LABS: African American GFR (CKD) >90 (>60 ml/min/1.73 sqM); Anion Gap 7 mmol/L; Blood Urea Nitrogen 8 mg/dL (9-20); Calcium 9.4 mg/dL (8.4-10.2); Carbon Dioxide 26 mmol/L (22-30); Chloride 97 mmol/L (98-107); Glucose 97 mg/dL (74-99); Non-African American GFR(CKD) >90 (>60 ml/min/1.73 sqM); Sodium 130 mmol/L (137-145)
[2020-03-21 14:20] LABS: Potassium 4.5 mmol/L (3.5-5.1)
[2020-03-21 14:50] VITALS: BP 135/87; PULSE 92; RESP 16; TEMP 99
== END 2020-03-21 15:02 | disposition home or self-care (01) ==
LOC: EC 10:18
DX: F41.9 Anxiety disorder, unspecified (principal); I10 Essential (primary) hypertension; F31.9 Bipolar disorder, unspecified; F25.9 Schizoaffective disorder, unspecified; E87.1 Hypo-osmolality and hyponatremia; Z79.899 Other long term (current) drug therapy; F17.200 Nicotine dependence, unspecified, uncomplicated
CPT/HCPCS: 82075; 36415; 80053; 80048; 83690; 85025; 81003; 80306; 99284; 96374; 96375; 96361 ×3; J1200; J2405

== ENCOUNTER → 2020-05-18 | Outpatient (CLI) | payer MEDICARE, OTHER ==
[2020-05-18 14:41] LABS: Basophils # (A) 0.1 k/uL (0-0.2); Basophils % (A) 1 %; Eosinophils # (A) 0.3 k/uL (0-0.7); Eosinophils % (A) 4 %; HCT 41.9 % (39.0-53.0); HGB 14.1 gm/dL (13.0-17.5); Lymphocytes # (A) 1.2 k/uL (1.0-4.8); Lymphocytes % (A) 17 %; MCH 32.2 pg (25.0-35.0); MCHC 33.8 g/dL (31.0-37.0); MCV 95.4 fL (80.0-100.0); Mean Platelet Volume 6.2; Monocytes # (A) 0.4 k/uL (0-1.0); Monocytes % (A) 6 %; Neutrophils # (A) 4.7 k/uL (1.3-7.7); Neutrophils % (A) 70 %; Platelet Count 279 k/uL (150-450); RBC 4.39 m/uL (4.30-5.90); WBC 6.7 k/uL (3.8-10.6)
[2020-05-18 21:19] LABS: African American GFR (CKD) 112.6 (60.0-200.0); Anion Gap 4.4 mmol/L (4.00-12.00); Carbon Dioxide 25.6 mmol/L (21.6-31.8); Non-African American GFR(CKD) 97.2 (60.0-200.0); Potassium 4.9 mmol/L (3.5-5.5)
== END | disposition home or self-care (01) ==
LOC: LABWHC1 13:20
PROVIDERS: ATTEND Internal Medicine
DX: F20.9 Schizophrenia, unspecified (principal); I10 Essential (primary) hypertension
CPT/HCPCS: 36415; 80051; 82565; 84520; 85025

== ENCOUNTER → 2020-10-02 | Outpatient (CLI) | payer MEDICARE, OTHER ==
--- NOTE | 2020-10-02 11:51 | XR ---
EXAMINATION TYPE: XR cervical spine comp DATE OF EXAM: 10/02/2020 CLINICAL HISTORY: pain COMPARISON: NONE TECHNIQUE: Frontal, lateral, oblique, swimmers, and open mouth view of the cervical spine are obtaine d. FINDINGS: The cervical spine is visualized in its entirety from C1 thru the top of T1 level. It is s atisfactory in alignment without evidence of acute fracture or dislocation. The pre-vertebral soft t issue appears within normal limits. Moderate degenerative disc space narrowing and spondylosis. The C 1-C2 articulation is unremarkable on the open mouth view. The oblique images are within normal limit s. IMPRESSION: No acute fracture or dislocation is seen in the cervical spine.ICD 10 NO FRACTURE, INITI AL EVALUATION
== END | disposition home or self-care (01) ==
LOC: RADXRMAIN 10:02
PROVIDERS: ATTEND Internal Medicine
DX: M54.2 Cervicalgia (principal)
CPT/HCPCS: 72050

== ENCOUNTER → 2021-10-16 | Outpatient (CLI) | payer MEDICARE, OTHER ==
[2021-10-16 22:49] LABS: Basophils # (A) 0.09 X 10*3/uL (0.00-0.10); Eosinophils # (A) 0.59 X 10*3/uL (0.04-0.35); Eosinophils % (A) 6.8 %; HCT 44.4 % (39.6-50.0); HGB 15.3 g/dL (13.0-17.0); Immature Grans, Automated 0.3 %; Lymphocytes # (A) 1.43 X 10*3/uL (0.90-5.00); Lymphocytes % (A) 16.6 %; MCH 31.9 pg (27.0-32.0); MCHC 34.5 g/dL (32.0-37.0); MCV 92.7 fL (80.0-97.0); Mean Platelet Volume 9.1 fL (9.5-12.2); Monocytes % (A) 12.8 %; NRBC Per 100 WBC 0 /100 WBCS (0.0-0.0); Neutrophils # (A) 5.38 X 10*3/uL (1.80-7.70); Neutrophils % (A) 62.5 %; Platelet Count 374 X 10*3/uL (140-440); RBC 4.79 X 10*6/uL (4.40-5.60); RDW 12.8 % (11.5-14.5); WBC 8.62 X 10*3/uL (4.50-10.00)
[2021-10-16 23:49] LABS: ALT 21 U/L (10-49); AST 25 U/L (14-35); African American GFR (CKD) 112.9 (60.0-200.0); Albumin 4.8 g/dL (3.8-4.9); Albumin/Globulin Ratio 1.63 (1.60-3.17); Alkaline Phosphatase 69 U/L (41-126); BUN/Creat Ratio 9.56 Ratio (12.00-20.00); Blood Urea Nitrogen 8.3 mg/dL (9.0-27.0); Calcium 9.8 mg/dL (8.7-10.3); Carbon Dioxide 19.3 mmol/L (20.0-27.5); Chloride 94 mmol/L (96-109); Globulin 2.9 g/dL (1.6-3.3); Glucose 105 mg/dL (70-110); Non-African American GFR(CKD) 97.4 (60.0-200.0); Potassium 4.5 mmol/L (3.5-5.5); Sodium 129 mmol/L (135-145); Total Protein 7.7 g/dL (6.2-8.2); VLDL Calculation 13.72 mg/dL (5.00-40.00)
== END | disposition home or self-care (01) ==
LOC: LABWHC1 11:54
PROVIDERS: ATTEND Nurse Practitioner Psychiatric/Mental Health
DX: I10 Essential (primary) hypertension (principal); E78.5 Hyperlipidemia, unspecified; F20.9 Schizophrenia, unspecified; R42 Dizziness and giddiness; Z12.5 Encounter for screening for malignant neoplasm of prostate; Z79.899 Other long term (current) drug therapy
CPT/HCPCS: 84439; 84481; 80061; 80053; 84443; 85025; 82306; 83036; 36415; G0103

== ENCOUNTER → 2023-01-24 | Outpatient (CLI) | payer MEDICARE, OTHER ==
--- NOTE | 2023-01-24 12:34 | CTL ---
EXAMINATION TYPE: CT Low Dose Lung DATE OF EXAM ORDERED: 01/24/2023 HISTORY: Z12.2 SCREEN LUNG CA F17.210 NICOTINE DEPENDENCE. Current smoker, 60 pack year history. Lung cancer screening CT DLP: 72.[address] CTDI: 1.9 mGy Automated exposure control for dose reduction was used. SCREENING VISIT: First screening visit COMPARISON: Chest radiograph 07/13/2018 TECHNIQUE: Low dose computed tomography scan was performed through the chest at 1 mm thick sections a nd reconstructed images in multiple planes at 1 mm and [address] DIAGNOSTIC QUALITY: Satisfactory FINDINGS: LUNG NODULES: No clinically significant pulmonary nodules. LUNGS: COPD: Severity: Mild Fibrosis: Severity: None Lymph nodes: None Other findings: None RIGHT PLEURAL SPACE: Effusion: None Calcification: None Thickening: None Pneumothorax: None LEFT PLEURAL SPACE: Effusion: None Calcification: None Thickening: None Pneumothorax: None HEART: Heart Size: Normal Coronary Calcification: Small Pericardial Effusion: None OTHER FINDINGS: Upper abdomen: None Bony thorax: No acute osseous abnormality. Mild degenerative disc disease of the thoracic spine. Supraclavicular region: None Other: None IMPRESSION: 1. No clinically significant pulmonary nodules. 2. Mild COPD changes. CT LUNG RAD AND CT CHEST RECOMMENDATION: Lung-Rad 1 Negative: Continue annual screening with LDCT in 12 months. S Modifier (other clinically significant findings): None
== END | disposition home or self-care (01) ==
LOC: RADCTMAIN 11:39
PROVIDERS: ATTEND Family Medicine
DX: Z12.2 Encounter for screening for malignant neoplasm of respiratory organs (principal); J44.9 Chronic obstructive pulmonary disease, unspecified; F17.210 Nicotine dependence, cigarettes, uncomplicated
CPT/HCPCS: 71271

== ENCOUNTER → 2024-06-12 | Outpatient (CLI) | payer MEDICARE, OTHER ==
--- NOTE | 2024-06-12 12:50 | CTL ---
EXAMINATION TYPE: CT Low Dose Lung DATE OF EXAM ORDERED: 06/12/2024 COMPARISON: Prior study January 24, 2023 CLINICAL INDICATION: Male, 58 years old with history of Z12.2ENCNTR SCREEN FOR MALIGNANT NEOPLASM F17 .210; PHH, current smoker 2 PPD X40 years, Lung cancer screening, History of Smoking/tobacco use. TECHNIQUE: Low dose computed tomography scan was performed through the chest at 1 mm thick sections a nd reconstructed images in multiple planes at 1 mm and [address] DLP: 95.[address] CTDI: 2.4 mGy Automated exposure control for dose reduction was used. CT DIAGNOSTIC QUALITY: Satisfactory FINDINGS: Nodules: RUL: None. RML: None. RLL: None. MARA: New thick-walled cavitary lesion in the anterior left upper lobe measuring 4.1 x 3.8 cm axial i mage 68. LLL: None. LUNGS: COPD: Severity: [id number] Fibrosis: Severity: None Lymph nodes: New 6 mm prominent but subcentimeter lymph node anterior prevascular space axial image 1 9 series 5. Other findings: None RIGHT PLEURAL SPACE: Effusion: None Calcification: None Thickening: None Pneumothorax: None LEFT PLEURAL SPACE: Effusion: None Calcification: None Thickening: None Pneumothorax: None HEART: Heart Size: Normal Coronary Calcification: Moderate Pericardial Effusion: None OTHER FINDINGS: Upper abdomen: None Bony thorax: None Supraclavicular region: None Other: None IMPRESSION: Mild to moderate emphysematous change with new thick-walled 4.1 cm cavitary lesion anteri or left upper lobe abutting the pleural surface. Neoplasm such as squamous cell carcinomas in differe ntial. CT LUNG RAD AND CT CHEST RECOMMENDATION: Lung-Rad 4B or 4X Very Suspicious: Follow-up Chest CT with o r without contrast or PET/CT and/or tissue sampling. PET/CT may be used when there is a > 8 mm solid component. 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 Clinical correlation as differential includes infectious process but m alignant neoplasm needs to be excluded. S Modifier (other clinically significant findings): None [facility], , 06/12/2024 12:48 PM
== END | disposition home or self-care (01) ==
LOC: RADCTMAIN 11:33
PROVIDERS: ATTEND Family Medicine
DX: Z12.2 Encounter for screening for malignant neoplasm of respiratory organs (principal); F17.210 Nicotine dependence, cigarettes, uncomplicated; J43.9 Emphysema, unspecified
CPT/HCPCS: 71271

== ENCOUNTER → 2024-08-01 | Outpatient (CLI) | payer MEDICARE, OTHER ==
--- NOTE | 2024-08-03 16:26 | PE ---
EXAMINATION TYPE: PET CT fusion skull to thigh DATE OF EXAM: 08/01/2024 COMPARISON: Low-dose CT chest Prior PET/CT: None at this location CLINICAL INDICATION: Male, 59 years old with history of C64.1 MALIGNANT NEOPLASM OF RIGHT KIDNEY, EXC EPT R, TECHNIQUE: Following the intravenous administration of 11.57 mCi of F-18 FDG, whole body images are performed PET CT fusion skull to thigh. Images are reviewed on the computer in the coronal, axial, a nd sagittal planes. Reconstructed rotating images are created on independent workstation and reviewe d on the computer. A localization and attenuation correction CT is performed in conjunction with e PET scan. DLP: 305.14 mGycm SCAN: Initial Blood glucose: 97 mg/dL Average Mediastinum SUV: 2.2 Average Liver SUV: 2.67 FINDINGS: NECK: No abnormal uptake THORAX: There is a focal area of increased uptake within the soft tissue density anterior left upper lobe with an SUV of 5.93, image 83. No suspicious hilar or mediastinal uptake evident ABDOMEN: No abnormal uptake PELVIS: No abnormal uptake OSSEOUS STRUCTURES: No abnormal uptake LOCALIZATION CT: A 3.0 x 2.1 cm density is in the anterior left upper lung field. Small left axillary lymph node is present. COMPARISON: Area of uptake corresponds to the density on the CT chest. IMPRESSION: 1. Abnormal uptake within the left upper lobe density compatible with neoplasm. 2. Additional areas of abnormal uptake to suggest metastasis not identified. [facility], , 08/03/2024 4:23 PM
== END | disposition home or self-care (01) ==
LOC: RADPETMAIN 15:39
PROVIDERS: ATTEND Internal Medicine
DX: R91.8 Other nonspecific abnormal finding of lung field (principal); J98.4 Other disorders of lung
CPT/HCPCS: 78815; A9552

== ENCOUNTER → 2024-09-30 | Outpatient (CLI) | payer MEDICARE, OTHER ==
--- NOTE | 2024-09-30 15:11 | CT ---
EXAMINATION TYPE: CT chest w con DATE OF EXAM: 09/30/2024 12:49 PM COMPARISON: 06/12/2024, 01/24/2023 CLINICAL INDICATION: Male, 59 years old with history of R91.8 ABNORMAL LUNG FIELD; PHH, irregular fin dings in last scan, follow-up TECHNIQUE: Multiple axial images were obtained through the chest. Sagittal and coronal reformats were created for review. MIP was performed on a separate workstation. Contrast used: 100 ML mL of Isovue [address] DLP: 234.9 mGycm, Automated exposure control for dose reduction was used. FINDINGS: Heart is normal size with trace anterior pericardial fluid. Three-vessel coronary artery calcificatio ns are present. Borderline ectatic aortic root at 3.6 cm. Conventional arch vessel branching anatomy. No thoracic lymphadenopathy by CT size criteria. Borderline caliber main right and left pulmonary arteries up to 2.5 cm may reflect underlying pulmona ry hypertension. Mild to moderate upper lung predominant emphysematous change. There is significant interval improveme nt in the previous anterior left upper lobe cavitary lesion now with residual bandlike density. There is also residual 8 mm nodular component that can continue to be reassessed at follow-up. No other co nsolidation or pleural effusion. Visualized upper abdomen shows fold thickening within visualized left upper quadrant jejunal loops. T his may be due to nondistention or a nonspecific enteritis. Bones: Mild to moderate degenerative disc disease scattered mid and lower thoracic spine. IMPRESSION: COPD with [id number] emphysema and marked interval improvement in the previous cavitary lesion involving the anterior left upper lobe. Given the residual bandlike density, we favor interval treatm ent of atypical mycobacterial/fungal infection or a cavitary pneumonia. Recommend 6 month follow-up t o reassess as a small 8 mm nodular component also remains. Scarring is favored. [facility], Workstation: [id number], 09/30/2024 3:09 PM
== END | disposition home or self-care (01) ==
LOC: RADCTMAIN 12:28
PROVIDERS: ATTEND Internal Medicine
DX: J43.9 Emphysema, unspecified (principal); R91.8 Other nonspecific abnormal finding of lung field; J98.4 Other disorders of lung
CPT/HCPCS: 71260; Q9967